=== PATIENT | male | born 1930 ===

== ENCOUNTER 2016-11-14 01:35 | Observation (INO) | payer OTHER ==
[2016-11-14] MEDS ORDERED: Nitroglycerin 2% 15 INCH/30 GM TUBE TOP STA (02:00)
[2016-11-14 02:14] LABS: BASO # 0.1 K/uL (0.0-0.2); BASO % 1.1 % (0.0-2.0); EOS # 0.6 K/uL (0.0-0.7); EOS % 6.7 % (0.0-4.0); LYMPH # 3.5 K/uL (1.0-4.3); LYMPH % 37.6 % (20.0-40.0); MEAN CELL VOLUME 83.4 fl (80.0-94.0); MEAN CORPUSCULAR HEMOGLOBIN 27.3 pg (27.0-31.0); MEAN CORPUSCULAR HGB CONC 32.7 g/dL (33.0-37.0); MEAN PLATELET VOLUME 8.9 fl (7.2-11.7); MONO # 0.9 K/uL (0.0-0.8); MONO % 9.7 % (0.0-10.0); NEUT # 4.1 K/uL (1.8-7.0); NEUT % 44.9 % (50.0-75.0); NRBC % 0.1 % (0.0-0.0); RBC 4.78 Mil/uL (4.40-5.90); WHITE BLOOD COUNT 9.2 K/uL (4.8-10.8)
--- NOTE | 2016-11-14 02:15 | ED PDOC ---
HPI: Chest Pain Time Seen by Provider: 11/14/16 01:37 Chief Complaint (Nursing): Chest Pain Chief Complaint (Provider): Chest Pain History Per: Patient History/Exam Limitations: no limitations Onset/Duration Of Symptoms: Hrs (x 5 hours) Current Symptoms Are (Timing): Still Present Additional Complaint(s): Sony Hinson is an 86 y/o male with a past medical history of coronary artery disease, dyslipidemia, and hypertension, who presents to the ED with complaints of acute left-sided chest pain, onset 5 hours ago while patient was at rest. He states having an angioplasty for a coronary occasion discovered on cardiac catheterization 3 weeks ago at [facility]. Pain is described as pressure. Patient denies diaphoresis, nausea, and vomiting. He reports being compliant with Plavix and aspirin regimen. PMD: Jayson Dai MD Past Medical History Reviewed: Historical Data, Nursing Documentation, Vital Signs Vital Signs: Last Vital Signs Temp 97.6 F 11/14/16 04:42 Pulse 62 11/14/16 04:42 Resp 18 11/14/16 04:42 BP 138/63 11/14/16 04:42 Pulse Ox 97 11/14/16 04:42 - Medical History PMH: Anemia, Anxiety, Arthritis, Benign Prostatic Hyperplasia, CAD, Gastritis, HTN, Hyperlipidemia, Chronic Kidney Disease - Surgical History Other surgeries: Angioplasty 3 weeks ago - Family History Family History: States: Unknown Family Hx - Social History Current smoker - smoking cessation education provided: No Alcohol: None Drugs: Denies - Home Medications Home Medications: Ambulatory Orders Medication Instructions Recorded ALPRAZolam [Xanax] 0.25 mg PO HS PRN #15 tab 07/31/16 Finasteride [Proscar] 5 mg PO HS #30 tab 07/31/16 Tamsulosin [Flomax] 0.4 mg PO HS cap 07/31/16 Acetaminophen [Tylenol 325mg tab] 650 mg PO Q6 PRN 11/14/16 Aspirin [Aspirin Chewable] 81 mg PO DAILY 11/14/16 Atorvastatin [Lipitor] 80 mg PO DAILY 11/14/16 Cetirizine HCl [All Day Allergy] 10 mg PO DAILY 11/14/16 Lisinopril [Zestril] 5 mg PO DAILY 11/14/16 Ranolazine [Ranexa] 500 mg PO BID 11/14/16 - Allergies Allergies/Adverse Reactions: Allergies Allergy/AdvReac Type Severity Reaction Status Date / Time Penicillins Allergy RASH Verified 07/26/16 13:50 Review of Systems ROS Statement: Except As Marked, All Systems Reviewed And Found Negative Constitutional: Negative for: Other (Diaphoresis) Cardiovascular: Positive for: Chest Pain Gastrointestinal: Negative for: Nausea, Vomiting Physical Exam - Reviewed Nursing Documentation Reviewed: Yes Vital Signs Reviewed: Yes - Physical Exam Appears: Positive for: Non-toxic, No Acute Distress Head Exam: Positive for: ATRAUMATIC, NORMAL INSPECTION, NORMOCEPHALIC Skin: Positive for: Normal Color, Warm, Dry Eye Exam: Positive for: Normal appearance ENT: Positive for: Normal ENT Inspection Neck: Positive for: Normal, Painless ROM, Supple Cardiovascular/Chest: Positive for: Regular Rate, Rhythm, Chest Non Tender. Negative for: Murmur Respiratory: Positive for: Normal Breath Sounds. Negative for: Accessory Muscle Use, Respiratory Distress Gastrointestinal/Abdominal: Positive for: Soft. Negative for: Tenderness Back: Positive for: Normal Inspection. Negative for: Vertebral Tenderness Extremity: Positive for: Normal ROM. Negative for: Pedal Edema, Deformity Neurologic/Psych: Positive for: Alert, Oriented - Laboratory Results Result Diagrams: 11/14/16 02:11 11/14/16 02:11 - ECG O2 Sat by Pulse Oximetry: 99 (RA) Pulse Ox Interpretation: Normal - Other Rad Chest X-Ray X-Ray: Interpreted by Me, Viewed By Id X-Ray Interpretation: shows no acute disease. Medical Decision Making Medical Decision Making: Time: 2:04 Initial Impression: 86 y/o male with chest pain in the setting of known CAD and PTCA Initial Plan: --Labs --EKG --Patient given Nitro and Aspirin --Pending CXR --Admit to observation for chest pain Time: 03:36 --Case referred to Dr. Dai (Medicine on-call doctor) Scribe Attestation: Documented by Anne Johnson, acting as a scribe for Cali Ga MD Provider Scribe Attestation: All medical record entries made by the Scribe were at my direction and personally dictated by me. I have reviewed the chart and agree that the record accurately reflects my personal performance of the history, physical exam, medical decision making, and the department course for this patient. I have also personally directed, reviewed, and agree with the discharge instructions and disposition. Disposition - Clinical Impression Clinical Impression: Chest pain Counseled Patient/Family Regarding: Studies Performed, Diagnosis - Disposition Disposition Time: 02:00 Condition: FAIR
[2016-11-14 02:23] LABS: ALB/GLOB RATIO 1.3 (1.0-2.1); ALBUMIN 4.2 g/dL (3.5-5.0); CALCIUM 9.1 mg/dL (8.4-10.2)
[2016-11-14 02:28] LABS: PARTIAL THROMBOPLASTIN TIME 35.5 Seconds (25.6-37.1); PROTHROMBIN TIME 11.3 Seconds (9.8-13.1)
[2016-11-14 02:35] LABS: TROPONIN I 0.015 ng/mL (0.00-0.120)
[2016-11-14 04:43] VITALS: RESP 18
--- NOTE | 2016-11-14 08:01 | RAD ---
HISTORY: Chest pain. Portable study 02:10. COMPARISON: 01/22/2012. FINDINGS: LUNGS: No active pulmonary disease. PLEURA: No significant pleural effusion identified, no pneumothorax apparent. CARDIOVASCULAR: No radiographic findings to suggest acute or significant cardiovascular disease. OSSEOUS STRUCTURES: No significant abnormalities. VISUALIZED UPPER ABDOMEN: Normal. OTHER FINDINGS: None. IMPRESSION: No active disease. No significant interval change compared to the prior examination(s). No preliminary report provided by emergency department personnel.
--- NOTE | 2016-11-14 11:54 | CP.PCM.HP ---
<John De Jesus - Last Filed: 11/14/16 13:36> History of Present Illness - History of Present Illness History of Present Illness: 86 y/o male with a PMHx remarkable for CAD, HLD, and HTN, presented to the ED with complaints of left-sided chest pain. Pain started earlier in the day while he was at rest. Denies inciting event. Pain is located on the left side of his chest, is 5/10, intermittent, and nonradiating. It is pressure like in characte. Denies alleviating and exacerbating factors. Pt reports having an angioplasty for a coronary occlusion found on cardiac cath 3 weeks ago at the [facility]. No other complaints. He denies fever/chills, headaches, changes in vision associated diaphoresis, nausea, and vomiting. Denies urianry symptoms , numbness/tingling. PMD: Dr. Jayson Dai PMHx: as per HPI Meds: as per med rec ALL: penicillin Social: denies ETOH, tobacco drug abuse FamilyHx: noncontributory Present on Admission - Present on Admission Any Indicators Present on Admission: No Review of Systems - Review of Systems All systems: reviewed and no additional remarkable complaints except - Constitutional Constitutional: As Per HPI Past Patient History - Past Medical History & Family History Past Medical History?: Yes - Past Social History Alcohol: None Drugs: Denies - CARDIAC Hx Hypertension: Yes - PULMONARY Hx Respiratory Disorders: No - NEUROLOGICAL Hx Neurological Disorder: No - HEENT Hx HEENT Problems: Yes Hx Deafness: Yes (left, hard of hearing) - RENAL Hx Chronic Kidney Disease: Yes - ENDOCRINE/METABOLIC Hx Endocrine Disorders: No - HEMATOLOGICAL/ONCOLOGICAL Hx Anemia: Yes - INTEGUMENTARY Hx Dermatological Problems: No - MUSCULOSKELETAL/RHEUMATOLOGICAL Hx Arthritis: Yes - GASTROINTESTINAL Hx Gastritis: Yes - GENITOURINARY/GYNECOLOGICAL Hx Genitourinary Disorders: Yes Hx Prostate Problems: Yes - PSYCHIATRIC Hx Anxiety: Yes - SURGICAL HISTORY Hx Surgeries: Yes Hx Angioplasty: Yes (October 2016) Hx Herniorrhaphy: Yes Other/Comment: gastric ulcer surgery - ANESTHESIA Hx Anesthesia: Yes Hx Anesthesia Reactions: No Meds Allergies/Adverse Reactions: Allergies Allergy/AdvReac Type Severity Reaction Status Date / Time Penicillins Allergy RASH Verified 07/26/16 13:50 Physical Exam - Constitutional Appears: Non-toxic, No Acute Distress - Head Exam Head Exam: ATRAUMATIC, NORMOCEPHALIC - Eye Exam Eye Exam: EOMI. absent: Conjunctival injection, Scleral icterus Pupil Exam: PERRL - ENT Exam ENT Exam: Mucous Membranes Moist - Respiratory Exam Respiratory Exam: Clear to Auscultation Bilateral, NORMAL BREATHING PATTERN. absent: Rales, Rhonchi, Wheezes - Cardiovascular Exam Cardiovascular Exam: REGULAR RHYTHM, RRR, +S1, +S2. absent: Tachycardia, Diastolic murmur, Gallop, JVD, Rubs, Systolic Murmur - GI/Abdominal Exam GI & Abdominal Exam: Normal Bowel Sounds, Soft. absent: Distended, Firm, Guarding, Organomegaly, Rebound, Rigid, Tenderness - Extremities Exam Extremities exam: Positive for: normal inspection, pedal pulses present. Negative for: calf tenderness, pedal edema, tenderness - Neurological Exam Neurological exam: Alert, CN II-XII Intact, Oriented x3, Reflexes Normal Results - Vital Signs Recent Vital Signs: Last Vital Signs Temp 97.5 F L 11/14/16 08:16 Pulse 62 11/14/16 11:42 Resp 18 11/14/16 08:16 BP 127/67 11/14/16 11:42 Pulse Ox 98 11/14/16 08:16 - Labs Result Diagrams: 11/14/16 02:11 11/14/16 02:11 Labs: Laboratory Results - last 24 hr 11/14/16 11/14/16 11/14/16 02:11 02:11 02:11 WBC 9.2 RBC 4.78 Hgb 13.0 Hct 39.8 MCV 83.4 MCH 27.3 MCHC 32.7 L RDW 15.0 H Plt Count 236 MPV 8.9 Neut % (Auto) 44.9 L Lymph % (Auto) 37.6 [place] % (Auto) 9.7 Eos % (Auto) 6.7 H Baso % (Auto) 1.1 Neut # 4.1 Lymph # 3.5 [place] # 0.9 H Eos # 0.6 Baso # 0.1 PT 11.3 INR 1.0 APTT 35.5 Sodium 137 Potassium 4.7 Chloride 104 Carbon Dioxide 25 Anion Gap 14 BUN 18 Creatinine 1.9 H Est GFR ( Amer) 41 Est GFR (Non-Af Amer) 34 Random Glucose 103 Calcium 9.1 Total Bilirubin 0.5 AST 28 ALT 40 Alkaline Phosphatase 92 Troponin I 0.0150 NT-Pro-B Natriuret Pep 609 Total Protein 7.4 Albumin 4.2 Globulin 3.2 Albumin/Globulin Ratio 1.3 Assessment & Plan (1) Chest pain, rule out acute myocardial infarction Assessment and Plan: EKG done in ED: NSR, low voltage for LVH, borderline EKG Troponins: first two values negative, awaiting third result Cardiology consult with Dr. Brown appreciated f/u third Troponin meds as ordered Status: Acute Priority: High (2) Hypertension Assessment and Plan: c/w home meds Status: Chronic Priority: Low (3) Hyperlipidemia Assessment and Plan: c/w home meds Status: Chronic Priority: Low (4) Benign prostatic hyperplasia Assessment and Plan: c/w home meds Status: Chronic Priority: Low <Dai,Jayson K - Last Filed: 11/15/16 16:37> Results - Vital Signs Recent Vital Signs: Last Vital Signs Temp 97.7 F 11/15/16 08:10 Pulse 73 11/15/16 09:00 Resp 18 11/15/16 08:10 BP 132/74 11/15/16 08:50 Pulse Ox 97 11/15/16 08:10 - Labs Result Diagrams: 11/14/16 02:11 11/14/16 02:11 Labs: Laboratory Results - last 24 hr 11/14/16 20:00 Troponin I 0.0130 Assessment & Plan - Assessment and Plan (Free Text) Assessment: Patient was personally seen and examined by me in rounds with residents. Available labs and diagnostic data reviewed. Case, patient's condition and management plan discussed with residents in rounds. Agree with resident's progress note. Plan: As ordered.
--- NOTE | 2016-11-14 12:26 | CARD ---
APPROVED REPORT EKG Measurement Heart [id number] ID [id number] <Conclusion> Normal sinus rhythm Minimal voltage criteria for LVH, may be normal variant Borderline ECG
[2016-11-14 15:39] LABS: URINE BACTERIA RARE (<OCC); URINE BILIRUBIN NEGATIVE (NEGATIVE); URINE BLOOD NEGATIVE (NEGATIVE); URINE CLARITY CLEAR (Clear); URINE COLOR YELLOW (YELLOW); URINE GLUCOSE (UA) NEG (Normal); URINE LEUKOCYTE ESTERASE NEG Leu/uL (Negative); URINE NITRATE NEGATIVE (NEGATIVE); URINE PROTEIN 100 mg/dL (NEGATIVE); URINE UROBILINOGEN 0.2-1.0 mg/dL (0.2-1.0)
--- NOTE | 2016-11-14 17:06 | CARD ---
APPROVED REPORT EXAM: Two-dimensional and M-mode echocardiogram with Doppler and color Doppler. Other Information Quality : GoodRhythm : NSR INDICATION Chest Pain 2D DIMENSIONS IVSd1.04 (0.7-1.1cm)LVDd3.63 (3.9-5.9cm) LVOT Diameter2.50 (1.8-2.4cm)PWd0.76 (0.7-1.1cm) IVSs1.13 (0.8-1.2cm)LVDs3.79 (2.5-4.0cm) FS (%) 4.3 %PWs1.05 (0.8-1.2cm) LVEF (%)55.0 (>50%) M-Mode DIMENSIONS Left Atrium (MM)3.76 (2.5-4.0cm)IVSd0.79 (0.7-1.1cm) Aortic Root3.26 (2.2-3.7cm)LVDd5.56 (4.0-5.6cm) Aortic Cusp Exc.1.79 (1.5-2.0cm)PWd1.03 (0.7-1.1cm) IVSs1.12 cmFS (%) 39 % LVDs3.41 (2.0-3.8cm)PWs1.62 cm Mitral Valve MV E Tktjmbio87.6cm/sMV DECEL [id number] A Oandwoxc27.9cm/s MV ZQN00uhN/A ratio0.8MVA (PHT)2.38cm2 TDI Lateral E' Peak V7.74cm/sMedial E' Peak V7.66cm/sE/Lateral E'7.3 E/Medial E'7.4 Pulmonary Valve PV Peak Amatrygc64.4cm/s Tricuspid Valve TR Peak Llxkpjhf365re/sRAP [id number] Peak Gr.17mmHg [id number] LEFT VENTRICLE The left ventricle is normal size. There is borderline concentric left ventricular hypertrophy. The left ventricular ejection fraction is within the normal range. Mild Septal hypokinesis Transmitral Doppler flow pattern is Grade I-abnormal relaxation pattern. RIGHT VENTRICLE The right ventricle is normal size. There is normal right ventricular wall thickness. The right ventricular systolic function is normal. ATRIA The left atrium size is normal. The right atrium size is normal. AORTIC VALVE The aortic valve is mildly thickened. There is trace aortic regurgitation. There is no aortic valvular stenosis. MITRAL VALVE The mitral valve is mildly thickened. There is no mitral valve stenosis. Mitral regurgitation is mild. TRICUSPID VALVE The tricuspid valve is normal in structure and function. There is no tricuspid valve regurgitation noted. PULMONIC VALVE The pulmonary valve is normal in structure and function. There is no pulmonic valvular regurgitation. GREAT VESSELS The aortic root is normal in size. The IVC is normal in size and collapses >50% with inspiration. PERICARDIAL EFFUSION There is a trace loculated anterior pericardial effusion. <Conclusion> The left ventricle is normal size. There is borderline concentric left ventricular hypertrophy. The left ventricular ejection fraction is within the normal range. Mild Septal hypokinesis Transmitral Doppler flow pattern is Grade I-abnormal relaxation pattern. Mitral regurgitation is mild.
[2016-11-15 00:31] VITALS: TEMP 97.7; O2SAT 97
[2016-11-15 08:10] VITALS: PULSE 73
[2016-11-15 08:11] VITALS: BP 132/74
--- NOTE | 2016-11-15 10:27 | CP.PCM.CON ---
History of Present Illness - History of Present Illness History of Present Illness: this 86-year-old man has come into the emergency room complaining of a sharp retrosternal discomfort aggravated by deep inspiration. This occurred at rest. It was not accompanied by any discomfort in his neck or jaw or arms. He gives history of recently having required coronary stenting at [facility] 3 weeks back. There is no history of prior myocardial infarction. There is no history suggestive of congestive cardiac failure. The patient has a long history of hypertension. He he quit smoking more than 40 years back. He has never been a diabetic. He is taken his medications regularly. Since his admission the patient has been symptom-free. On physical examination, this is an elderly man who is alert awake and coherent. Afebrile. Breathes comfortably at 16 breaths per minute. Has a heart rate of 70 bpm and regular and a blood pressure of 122/70 mmHg. His jugular venous pressure was not elevated. There was no edema over his lower extremities. The pedal pulses were well felt. The extremities were warm, nailbeds were pink there was no central or peripheral cyanosis. There was no clubbing. There was no lymphadenopathy. The apex was palpable in the fifth space the first and second heart sounds were normal. There was no murmur or gallop there were no rales. His abdomen was soft liver and spleen are not palpable. There were no abdominal bruits. His electro-cardiogram showed sinus rhythm with a pattern suggestive of left ventricular hypertrophy. His electrocardiogram was compared with the cardiograms of his June admission at this institution for chest pain as well. The EKG tracings were similar at that time to the tracings taken now. His lab tests show a normal troponin level, indicating that there is no evidence off myocyte injury. IMPRESSION: atypical chest pain. No evidence of acute coronary syndrome.stable coronary artery disease with status post recent coronary stenting. History of hypertension and dyslipidemia. The patient is stable from cardiovascular point of view and may be allowed to return home taking his medications,which should include dual antiplatelets therapy. Past Patient History - Past Medical History & Family History Past Medical History?: Yes - Past Social History Alcohol: None Drugs: Denies - CARDIAC Hx Hypertension: Yes - PULMONARY Hx Respiratory Disorders: No - NEUROLOGICAL Hx Neurological Disorder: No - HEENT Hx HEENT Problems: Yes Hx Deafness: Yes (left, hard of hearing) - RENAL Hx Chronic Kidney Disease: Yes - ENDOCRINE/METABOLIC Hx Endocrine Disorders: No - HEMATOLOGICAL/ONCOLOGICAL Hx Anemia: Yes - INTEGUMENTARY Hx Dermatological Problems: No - MUSCULOSKELETAL/RHEUMATOLOGICAL Hx Arthritis: Yes - GASTROINTESTINAL Hx Gastritis: Yes - GENITOURINARY/GYNECOLOGICAL Hx Genitourinary Disorders: Yes Hx Prostate Problems: Yes - PSYCHIATRIC Hx Anxiety: Yes - SURGICAL HISTORY Hx Surgeries: Yes Hx Angioplasty: Yes (October 2016) Hx Herniorrhaphy: Yes Other/Comment: gastric ulcer surgery - ANESTHESIA Hx Anesthesia: Yes Hx Anesthesia Reactions: No Meds Allergies/Adverse Reactions: Allergies Allergy/AdvReac Type Severity Reaction Status Date / Time Penicillins Allergy RASH Verified 07/26/16 13:50 - Medications Medications: Current Medications Alprazolam (Xanax) 0.25 mg PO HS PRN PRN Reason: Anxiety Stop: 11/21/16 09:42 Last Admin: 11/14/16 21:27 Dose: 0.25 mg Aspirin (Aspirin Chewable) 81 mg PO DAILY PENDING SALE TO [facility] Last Admin: 11/15/16 08:50 Dose: 81 mg Atorvastatin Calcium (Lipitor) 80 mg PO DAILY PENDING SALE TO [facility] Last Admin: 11/15/16 08:50 Dose: 80 mg Docusate Sodium (Colace) 100 mg PO DAILY PENDING SALE TO [facility] Last Admin: 11/15/16 08:50 Dose: 100 mg Finasteride (Proscar) 5 mg PO HS PENDING SALE TO [facility] Last Admin: 11/14/16 21:24 Dose: 5 mg Home Med (Ranolazine [Ranexa]) 500 mg PO BID PENDING SALE TO [facility] Lactulose (Enulose) 10 gm PO DAILY PRN PRN Reason: Constipation Last Admin: 11/14/16 16:46 Dose: 10 gm Lisinopril (Zestril) 5 mg PO DAILY PENDING SALE TO [facility] Last Admin: 11/15/16 08:50 Dose: 5 mg Loratadine (Claritin) 10 mg PO DAILY PENDING SALE TO [facility] Last Admin: 11/15/16 08:50 Dose: 10 mg Tamsulosin HCl (Flomax) 0.4 mg PO HS PENDING SALE TO [facility] Last Admin: 11/14/16 21:24 Dose: 0.4 mg Results - Vital Signs Recent Vital Signs: Last Vital Signs Temp 97.7 F 11/15/16 08:10 Pulse 73 11/15/16 08:50 Resp 18 11/15/16 08:10 BP 132/74 11/15/16 08:50 Pulse Ox 97 11/15/16 08:10 - Labs Result Diagrams: 11/14/16 02:11 11/14/16 02:11 Labs: Laboratory Results - last 24 hr 11/14/16 11/14/16 11/14/16 12:30 14:00 20:00 Troponin I 0.0140 0.0130 Urine Color Yellow Urine Clarity Clear Urine pH 7.0 Ur Specific [place] 1.005 Urine Protein 100 Urine Glucose (UA) Neg Urine Ketones Negative Urine Blood Negative Urine Nitrate Negative Urine Bilirubin Negative Urine Urobilinogen 0.2-1.0 Ur Leukocyte Esterase Neg Urine Microscopic WBC < 1 Urine Bacteria Rare
[2016-11-15] MEDS ORDERED: Lactulose 10 gm/15 ml Syrup PO PRN (11:45)
== END 2016-11-15 11:42 | disposition home or self-care (01) ==
LOC: H.ER 01:35 → H.ERHOLD 02:04 → H.TEL 04:03
PROVIDERS: ADMIT Internal Medicine; ATTEND Internal Medicine
DX: R07.89 Other chest pain (principal); E78.5 Hyperlipidemia, unspecified; I12.9 Hypertensive chronic kidney disease with stage 1 through stage 4 chronic kidney disease, or unspecified chronic kidney disease; N18.9 Chronic kidney disease, unspecified; I25.10 Atherosclerotic heart disease of native coronary artery without angina pectoris; Z95.5 Presence of coronary angioplasty implant and graft; N40.0 Benign prostatic hyperplasia without lower urinary tract symptoms; Z87.891 Personal history of nicotine dependence; Z88.0 Allergy status to penicillin; H91.92 Unspecified hearing loss, left ear; K29.70 Gastritis, unspecified, without bleeding; F41.9 Anxiety disorder, unspecified; M19.90 Unspecified osteoarthritis, unspecified site
CPT/HCPCS: 71010; 80053; 81003; 83880; 84484; 85025; 85610; 85730; 93005; 93306; 99285; G0378

== ENCOUNTER 2017-06-03 04:12 | Inpatient (IN) | payer SELFPAY ==
--- NOTE | 2017-06-03 04:57 | ED PDOC ---
HPI: Chest Pain Chief Complaint (Provider): Chest pain Additional History Per: Patient <Kiki Galvez - Last Filed: 06/03/17 06:06> <Naima Navarrete - Last Filed: 06/03/17 06:19> Time Seen by Provider: 06/03/17 04:24 Chief Complaint (Nursing): Chest Pain Additional Complaint(s): This is 87 y/o male with PMH of CAD, KS, HTN, and HLD comes to the ED c/o left side chest pain which started 3 hours ago. Pain is 8/10 severity, intermittent, Pressure like in nature, tylenol did not help with pain and it gets worse with movements. Chest pain is associated with mild dizziness and occasional nausea, Admits fever yesterday and coughing. Denies blurred vision, abdominal pain, urinary symptoms or joint pain. (Kiki Galvez) Supervising Attending Note - Supervising Attending Note The Documented history was done by the: Physician Distribution Associate, Attending Physician The documented physical exam was done by the: Physician Distribution Associate, Attending Physician The documented procedures were done by the: Physician Distribution Associate, Attending Physician - Attestation: I have personally seen and examined this patient.: Yes I have fully participated in the care of the patient.: Yes I have reviewed all pertinent clinical information: Yes <Naima Navarrete - Last Filed: 06/03/17 06:19> Past Medical History - Medical History PMH: Anemia, Anxiety, Arthritis, Benign Prostatic Hyperplasia, CAD, Gastritis, HTN, Hyperlipidemia, Chronic Kidney Disease - Surgical History Surgical History: Coronary Stent, Hernia Repair - Family History Family History: States: Unknown Family Hx - Social History Current smoker - smoking cessation education provided: No Alcohol: None Drugs: Denies <Kiki Galvez - Last Filed: 06/03/17 06:06> Reviewed: Historical Data, Nursing Documentation, Vital Signs <Naima Navarrete - Last Filed: 06/03/17 06:19> Vital Signs: Last Vital Signs Temp 98.5 F 06/03/17 04:20 Pulse 78 06/03/17 05:30 Resp 18 06/03/17 05:30 BP 103/67 06/03/17 05:30 Pulse Ox 98 06/03/17 06:06 - Home Medications Home Medications: Ambulatory Orders Medication Instructions Recorded ALPRAZolam [Xanax] 0.25 mg PO HS PRN #15 tab 07/31/16 Finasteride [Proscar] 5 mg PO HS #30 tab 07/31/16 Tamsulosin [Flomax] 0.4 mg PO HS cap 07/31/16 Acetaminophen [Tylenol 325mg tab] 650 mg PO Q6 PRN 11/14/16 Aspirin [Aspirin Chewable] 81 mg PO DAILY 11/14/16 Atorvastatin [Lipitor] 80 mg PO DAILY 11/14/16 Ranolazine [Ranexa] 500 mg PO BID 11/14/16 Docusate Sodium/Sennosides A 1 tab PO TID 06/03/17 [Senokot S 50 MG-8.6 MG] Isosorbide Mononitrate [Isosorbide 1 tab PO DAILY 06/03/17 Mononitrate ER] Metoprolol Tartrate [Lopressor] 25 mg PO BID 06/03/17 Nitroglycerin [Nitrostat SL Tab] 1 tab PO PRN PRN 06/03/17 Pantoprazole [Protonix EC Tab] 40 mg PO BID 06/03/17 - Allergies Allergies/Adverse Reactions: Allergies Allergy/AdvReac Type Severity Reaction Status Date / Time Penicillins Allergy RASH Verified 07/26/16 13:50 YAYA Risk Score for UA/NSTEMI - YAYA Risk Score Age > 64: YES 3 or more CAD Risk Factors: YES Known CAD (Stenosis greater than 50%): YES Aspirin use in past 7 days: YES Severe Angina: NO EKG ST changes greater than 0.5mm: NO YAYA Score: 4 Risk %: 20% <Kiki Galvez - Last Filed: 06/03/17 06:06> - YAYA Risk Score Positive Cardiac Marker: NO AYYA Score: 0 Risk %: 5% <Naima Navarrete - Last Filed: 06/03/17 06:19> Curb-65 Severity Score - CURB-65 Severity Score Confusion: No Respiratory Rate greater than/equal to 30: No Systolic BP <90 or Diastolic BP less than/equal 60mmHg: No Age >64: Yes Curb-65 Score: 1 Percentage 30-day mortality: 2.7% <Kiki Galvez - Last Filed: 06/03/17 06:06> - CURB-65 Severity Score Confusion: No Bun >19mg/dl (>7mmol/L): No Respiratory Rate greater than/equal to 30: No Systolic BP <90 or Diastolic BP less than/equal 60mmHg: No Age >64: No Curb-65 Score: 0 Percentage 30-day mortality: 0.6% <Naima Navarrete - Last Filed: 06/03/17 06:19> Wells Criteria for PE - Wells Criteria for Pulmonary Embolism Clinical Signs and Symptoms of DVT: No P.E is #1 Diagnosis, or Equally Likely: No Heart Rate >100: No Immobilization at least 3 days;Surgery previous 4 weeks: No Previous, objectively diagnosed PE or DVT: No Hemoptysis: No Malignancy w/treatment within 6 months, or palliative: No Total Score: 0 <Kiki Galvez - Last Filed: 06/03/17 06:06> Review of Systems Constitutional: Positive for: Fever Eyes: Negative for: Pain, Vision Change ENT: Negative for: Ear Pain Cardiovascular: Positive for: Chest Pain, Palpitations. Negative for: Edema Respiratory: Positive for: Cough, SOB with Exertion Gastrointestinal: Positive for: Nausea. Negative for: Vomiting, Abdominal Pain , Diarrhea Genitourinary Male: Negative for: Dysuria Musculoskeletal: Negative for: Neck Pain Skin: Negative for: Rash Neurological: Negative for: Weakness, Numbness, Confusion <Kiki Galvez - Last Filed: 06/03/17 06:06> ROS Statement: Except As Marked, All Systems Reviewed And Found Negative <Naima Navarrete - Last Filed: 06/03/17 06:19> Physical Exam - Reviewed Nursing Documentation Reviewed: Yes Vital Signs Reviewed: Yes - Physical Exam Appears: Positive for: No Acute Distress Head Exam: Positive for: ATRAUMATIC Skin: Positive for: Normal Color Eye Exam: Positive for: Normal appearance ENT: Positive for: Normal ENT Inspection Neck: Positive for: Normal Cardiovascular/Chest: Positive for: Regular Rate, Rhythm, Chest Non Tender. Negative for: Edema, JVD Respiratory: Positive for: Normal Breath Sounds Gastrointestinal/Abdominal: Positive for: Normal Exam, Bowel Sounds, Soft. Negative for: Tenderness Back: Positive for: Normal Inspection Extremity: Negative for: Pedal Edema, Calf Tenderness Neurologic/Psych: Positive for: Alert, Oriented. Negative for: Motor/Sensory Deficits <Kiki Galvez - Last Filed: 06/03/17 06:06> - Laboratory Results Result Diagrams: 06/03/17 05:13 06/03/17 05:13 - ECG O2 Sat by Pulse Oximetry: 98 - Progress Re-evaluation Time: 06:00 Condition: Improved <Kiki Galvez - Last Filed: 06/03/17 06:06> - Laboratory Results Result Diagrams: 06/03/17 05:13 06/03/17 05:13 - ECG ECG: Positive for: Interpreted By Me, Viewed By Me ECG Rhythm: Positive for: Normal QRS, Sinus Rhythm, Nonspecific Changes Rate: 85 - Radiology X-Ray: Interpreted by Me, Viewed By Me X-Ray Interpretation: No Acute Disease <Naima Navarrete - Last Filed: 06/03/17 06:19> - Progress ED Course And Treament: 87 y/o male with left side chest pain and coughing - EKG, CXR - Troponin, BNP - CBC - Influenza A/B - Nitroglyc 0.4mg - Continue digital media producer - Reevaluate Case discussed with Dr. Navarrete EKG reviewed: Normal sinus rhythm, Nonspecific T waves abnormality CXR: No acute changes CBC, CMP reviewed with patient Troponin negative Flu negative (Kiki Galvez) Medical Decision Making <Kiki Galvez - Last Filed: 06/03/17 06:06> <Naima Navarrete - Last Filed: 06/03/17 06:19> Medical Decision Making: Chest pain, URI (Kiki Galvez) Disposition - Patient ED Disposition Is Patient to be Admitted: Yes Discussed With DrDashawn: Jovanni Mcginnis Doctor Will See Patient In The: ED - Disposition Disposition Time: 06:04 <Kiki Galvez - Last Filed: 06/03/17 06:06> Counseled Patient/Family Regarding: Studies Performed, Diagnosis - Pt Status Changed To: Hospital Disposition Of: Observation - POA Present On Arrival: None <Naima Navarrete - Last Filed: 06/03/17 06:19> - Clinical Impression Clinical Impression: Chest pain, Atypical chest pain - Disposition Condition: FAIR
[2017-06-03 05:16] LABS: BASO # 0.1 K/uL (0.0-0.2); EOS # 0.2 K/uL (0.0-0.7); EOS % 3.4 % (0.0-4.0); HEMOGLOBIN 11.6 g/dL (12.0-18.0); LYMPH # 0.7 K/uL (1.0-4.3); MEAN CELL VOLUME 80.6 fl (80.0-94.0); MEAN CORPUSCULAR HEMOGLOBIN 25.8 pg (27.0-31.0); MEAN CORPUSCULAR HGB CONC 32.1 g/dL (33.0-37.0); MEAN PLATELET VOLUME 9.2 fl (7.2-11.7); MONO # 0.7 K/uL (0.0-0.8); MONO % 11.5 % (0.0-10.0); NEUT # 4.4 K/uL (1.8-7.0); NEUT % 72.1 % (50.0-75.0); RBC 4.48 Mil/uL (4.40-5.90); RED CELL DISTRIBUTION WIDTH 15.7 % (11.5-14.5); WHITE BLOOD COUNT 6.1 K/uL (4.8-10.8)
[2017-06-03 05:23] LABS: CALCIUM 8.6 mg/dL (8.4-10.2)
[2017-06-03 05:35] LABS: TROPONIN I 0.018 ng/mL (0.00-0.120)
--- NOTE | 2017-06-03 08:26 | CP.PCM.HP ---
History of Present Illness - History of Present Illness History of Present Illness: 87 y/o male with PMH CAD with 1 stent placed in October 2016, dyslipidemia, CKD stage IV hypertension , history of gastric ulcer, BPH, anxiety, CVA ? brought to ER for evaluation for chest pain. History obtained from patient . He states that experienced sudden midsternal chest pain pressure like 10/10 in intensity early this morning , waking him up from sleep. He called his daughter who told him to call EMS. patient states that he also felt lightheaded when he got up from bed. He denies any other associated symptoms or radiation . Has been having dry cough since yesterday. his pain got better after Nitro SL with 5/10 in intensity. he states that he used to get chest pain and SOB with ambulation before and after he got stent his symptoms improved Complains of some SOB with ambulation , denies orthopnea. Patient is not a very good historian Has urinary incontinence , denies dysuria Allergies ; PCN PMH ;CAD with 1 stent placed in October 2016, dyslipidemia, CKD, hypertension , history of gastric ulcer, BPH, anxiety, CVA Medications; Metoprolol, gabapentin, ASa, atorvastatin,plavix surgery ; bilateral inguinal hernia repair, C4-C5-C6 fusion, gastric ulcer surgery Family history ; 2 sisters of heart disease, 1 sister of liver disease Social history ; lives in [place] with , has 6 children, quit [id number] years ago, stopped drinking 20 years agpo, denies drug use, walks with a cane Code status : full ROS ; chest pain , urinary incontinence, dyspnea with ambulation , review of rest of system negative Present on Admission - Present on Admission Any Indicators Present on Admission: No Review of Systems - Review of Systems All systems: reviewed and no additional remarkable complaints except Past Patient History - Infectious Disease Hx of Infectious Diseases: None - Tetanus Immunizations Tetanus Immunization: Unknown - Past Medical History & Family History Past Medical History?: Yes - Past Social History Smoking Status: Former Smoker Chewing Tobacco Use: No Cigar Use: No Alcohol: None Drugs: Denies Home Situation {Lives}: With Family Domestic Violence: Negative - CARDIAC Hx Cardiac Disorders: Yes Hx Hypercholesterolemia: Yes Hx Hypertension: Yes Other/Comment: CAD with stent - PULMONARY Hx Respiratory Disorders: No - NEUROLOGICAL Hx Neurological Disorder: No - HEENT Hx HEENT Problems: Yes Hx Deafness: Yes (left, hard of hearing) - RENAL Hx Chronic Kidney Disease: Yes - ENDOCRINE/METABOLIC Hx Endocrine Disorders: No - HEMATOLOGICAL/ONCOLOGICAL Hx Anemia: Yes - INTEGUMENTARY Hx Dermatological Problems: No - MUSCULOSKELETAL/RHEUMATOLOGICAL Hx Arthritis: Yes - GASTROINTESTINAL Hx Gastritis: Yes - GENITOURINARY/GYNECOLOGICAL Hx Genitourinary Disorders: Yes - PSYCHIATRIC Hx Anxiety: Yes - SURGICAL HISTORY Hx Coronary Stent: Yes - ANESTHESIA Hx Anesthesia: Yes Hx Anesthesia Reactions: No Meds Allergies/Adverse Reactions: Allergies Allergy/AdvReac Type Severity Reaction Status Date / Time Penicillins Allergy RASH Verified 07/26/16 13:50 Physical Exam - Constitutional Appears: Non-toxic, No Acute Distress - Eye Exam Eye Exam: EOMI, Normal appearance, PERRL Pupil Exam: NORMAL ACCOMODATION - ENT Exam ENT Exam: Mucous Membranes Moist, Normal Exam - Neck Exam Neck exam: Positive for: Full Rom, Normal Inspection - Respiratory Exam Respiratory Exam: Clear to Auscultation Bilateral, Prolonged Expiratory Phase, NORMAL BREATHING PATTERN. absent: Rales, Rhonchi, Wheezes, Respiratory Distress - Cardiovascular Exam Cardiovascular Exam: REGULAR RHYTHM, RRR, +S1, +S2. absent: JVD - GI/Abdominal Exam GI & Abdominal Exam: Normal Bowel Sounds, Soft. absent: Guarding, Rebound, Tenderness - Rectal Exam Rectal Exam: Deferred - Extremities Exam Extremities exam: Positive for: normal capillary refill, normal inspection, pedal pulses present. Negative for: pedal edema - Back Exam Back exam: NORMAL INSPECTION - Neurological Exam Neurological exam: Alert Additional comments: right facial droop - Psychiatric Exam Psychiatric exam: Anxious, Flat Affect - Skin Skin Exam: Dry, Intact, Warm Results - Vital Signs Recent Vital Signs: Last Vital Signs Temp 100.4 F H 06/03/17 07:40 Pulse 78 06/03/17 07:40 Resp 16 06/03/17 07:40 BP 104/59 L 06/03/17 07:40 Pulse Ox 96 06/03/17 07:40 - Labs Result Diagrams: 06/03/17 05:13 06/03/17 05:13 Labs: Laboratory Results - last 24 hr 06/03/17 06/03/17 06/03/17 05:13 05:13 05:13 WBC 6.1 RBC 4.48 Hgb 11.6 L Hct 36.1 MCV 80.6 D MCH 25.8 L MCHC 32.1 L RDW 15.7 H Plt Count 188 MPV 9.2 Neut % (Auto) 72.1 Lymph % (Auto) 12.0 L [place] % (Auto) 11.5 H Eos % (Auto) 3.4 Baso % (Auto) 1.0 Neut # (Auto) 4.4 Lymph # (Auto) 0.7 L [place] # (Auto) 0.7 Eos # (Auto) 0.2 Baso # (Auto) 0.1 Sodium 138 Potassium 4.5 Chloride 105 Carbon Dioxide 24 Anion Gap 14 BUN 27 H Creatinine 2.2 H Est GFR ( Amer) 35 Est GFR (Non-Af Amer) 29 Random Glucose 100 Calcium 8.6 Troponin I 0.0180 Influenza Typ A,B (EIA) Negative for flu a/b - EKG Data EKG shows normal: Sinus rhythm Rate: Normal - EKG Data EKG comments: no ST -T wave changes - Imaging and Cardiology Chest x-ray Additional comment: no active disease Assessment & Plan - Assessment and Plan (Free Text) Assessment: 87 y/o male with PMH CAD with 1 stent placed in October 2016, dyslipidemia, CKD stage IV, hypertension , history of gastric ulcer, BPH, anxiety, CVA ? brought to ER for evaluation for chest pain. He states that experienced sudden midsternal chest pain pressure like 10/10 in intensity early this morning , waking him up from sleep.Patient states that he also felt lightheaded when he got up from bed. He denies any other associated symptoms or radiation . Has been having dry cough since yesterday. his pain got better after Nitro SL with 5 /10 in intensity. He states that he used to get chest pain and SOB with ambulation before and after he got stent his symptoms improved. Complains of some SOB with ambulation , denies orthopnea. 1. Chest pain rule out ACS Admit patient to telemetry History of CAd with stent ASA 325 mg stat and Nitro Sl given will cycle Troponins Q6 hours x3 tele monitoring call cardiology cosnult with Dr. Estrada echo resume home meds ASa , statin. Nitro Sl , ranexa ( ariadna e med ), Metoprolol 2. CKD stage IV stable 3. Hypertension Continue metoprolol 4. BPH on flomax and Proscar 5.Dyslipidemia on statin 6. History of CVA on ASa , statin , BP control 7. DVt prophylaxis SCD lovenox renal dose 8. GI prophylaxis Protonix
--- NOTE | 2017-06-03 09:33 | RAD ---
PROCEDURE: CHEST RADIOGRAPH, 1 VIEW HISTORY: chest pain COMPARISON: Comparison made with chest radiograph 11/14/2016 FINDINGS: LUNGS: There appears to be some minor some residual left atelectasis or scarring improved from prior exam. Mild biapical pleural thickening. PLEURA: No pneumothorax or pleural fluid seen. CARDIOVASCULAR: Normal. Re- demonstrated are metallic clips overlying the lower mid mediastinum ; rule out prior Jamee fundoplication. Clinical correlation with surgical history OSSEOUS STRUCTURES: No significant abnormalities. VISUALIZED UPPER ABDOMEN: Normal. OTHER FINDINGS: None. IMPRESSION: Minor residual left basilar atelectasis or scarring.
[2017-06-03 09:55] LABS: HDL CHOLESTEROL 43 MG/DL (30-70)
[2017-06-03 10:05] LABS: LDL CHOLESTEROL 48 mg/dL (0-129)
--- NOTE | 2017-06-03 12:14 | CARD ---
APPROVED REPORT EXAM: Two-dimensional and M-mode echocardiogram with Doppler and color Doppler. Other Information Quality : GoodRhythm : NSR INDICATION Cardiac Disease: CAD Chest Pain 2D DIMENSIONS IVSd1.09 (0.7-1.1cm)LVDd4.44 (3.9-5.9cm) LVOT Diameter2.15 (1.8-2.4cm)PWd0.58 (0.7-1.1cm) IVSs1.38 (0.8-1.2cm)LVDs2.66 (2.5-4.0cm) FS (%) 40.1 %PWs1.12 (0.8-1.2cm) M-Mode DIMENSIONS Left Atrium (MM)3.74 (2.5-4.0cm)IVSd0.85 (0.7-1.1cm) Aortic Root3.44 (2.2-3.7cm)LVDd4.68 (4.0-5.6cm) Aortic Cusp Exc.1.82 (1.5-2.0cm)PWd0.97 (0.7-1.1cm) IVSs1.47 cmFS (%) 38 % LVDs2.91 (2.0-3.8cm)PWs1.41 cm Mitral Valve MV E Alrhjgee75.5cm/sMV DECEL PROF663xmLP A Rfqupkjx14.5cm/s MV CVQ58aqF/A ratio0.9MVA (PHT)3.18cm2 TDI Lateral E' Peak V9.61cm/sMedial E' Peak V7.01cm/sE/Lateral E'6.3 E/Medial E'8.6 Pulmonary Valve PV Peak Wqvnkjgw917.0cm/s Tricuspid Valve TR Peak Bgiycvnj781il/sRAP [id number] Peak Gr.15mmHg [id number] LEFT VENTRICLE The left ventricle is normal size. The left ventricular function is normal. The left ventricular ejection fraction is within the normal range. The Ejection Fraction is 65-70%. There is normal LV segmental wall motion. The left ventricular diastolic function is normal. RIGHT VENTRICLE The right ventricle is normal size. The right ventricular systolic function is normal. ATRIA The left atrium size is normal. The right atrium size is normal. AORTIC VALVE The aortic valve is normal in structure. No aortic regurgitation is present. There is no aortic valvular stenosis. MITRAL VALVE The mitral valve is normal in structure. There is no mitral valve stenosis. Mitral regurgitation is mild. TRICUSPID VALVE The tricuspid valve is normal in structure. There is no tricuspid valve regurgitation noted. PULMONIC VALVE The pulmonary valve is normal in structure. There is no pulmonic valvular regurgitation. GREAT VESSELS The aortic root is normal in size. The IVC is normal in size and collapses >50% with inspiration. PERICARDIAL EFFUSION The pericardium appears normal. <Conclusion> The left ventricle is normal size. The left ventricular function is normal. The left ventricular ejection fraction is within the normal range. The Ejection Fraction is 65-70%. Mitral regurgitation is mild.
--- NOTE | 2017-06-03 12:20 | CARD ---
APPROVED REPORT EKG Measurement Heart [id number] <Conclusion> Normal sinus rhythm Minimal voltage criteria for LVH, may be normal variant Nonspecific T wave abnormality Abnormal ECG
[2017-06-03] MEDS: Docusate-Senna 50 mg-8.6 mg Tab PO SCH ×2 (12:55→20:17)
[2017-06-03] MEDS: Pantoprazole 40 mg EC Tab PO SCH (17:06)
--- NOTE | 2017-06-03 20:16 | CP.PCM.CON ---
History of Present Illness - History of Present Illness History of Present Illness: PT SEEN AND EXAMINED. FAMILY AT BEDSIDE. [facility] AT THAT TIME HE HAD CHEST PAIN WITH AMBULATION. THESE SYMPTOMS RESOLVED POST PCI, HOWEVER ABOUT 2 WEEKS AGO THE SYMPTOMS RETURNED. HE STATES THE CP IS THE SAME PRIOR TO PCI. SEVERE, BOUGHT ON BY AMBULATION, RELIEVED WITH REST. PT IS ON DUAL ANTIPLT THERAPY. PER DAUGHTER THEY WERE TOLD HE HAS MORE THAN 1 BLOCKAGE, ONLY 1 VESSEL WAS STENTED. TROP X 1 NEGATIVE. PT W/O CP CURRENTLY. Past Patient History - Infectious Disease Hx of Infectious Diseases: None - Tetanus Immunizations Tetanus Immunization: Unknown - Past Medical History & Family History Past Medical History?: Yes - Past Social History Smoking Status: Never Smoked - CARDIAC Hx Cardiac Disorders: Yes - PULMONARY Hx Respiratory Disorders: No - NEUROLOGICAL Hx Neurological Disorder: No - HEENT Hx HEENT Problems: Yes - RENAL Hx Chronic Kidney Disease: Yes - ENDOCRINE/METABOLIC Hx Endocrine Disorders: No - HEMATOLOGICAL/ONCOLOGICAL Hx Anemia: Yes - INTEGUMENTARY Hx Dermatological Problems: No - MUSCULOSKELETAL/RHEUMATOLOGICAL Hx Falls: No - GASTROINTESTINAL Hx Gastritis: Yes - GENITOURINARY/GYNECOLOGICAL Hx Genitourinary Disorders: Yes - PSYCHIATRIC Hx Anxiety: Yes - SURGICAL HISTORY Hx Coronary Stent: Yes - ANESTHESIA Hx Anesthesia: Yes Hx Anesthesia Reactions: No Meds Allergies/Adverse Reactions: Allergies Allergy/AdvReac Type Severity Reaction Status Date / Time Penicillins Allergy RASH Verified 07/26/16 13:50 - Medications Medications: Current Medications Acetaminophen (Tylenol 325mg Tab) 650 mg PO Q6 PRN PRN Reason: Pain, Mild (1-3) Acetaminophen (Tylenol 325mg Tab) 650 mg PO Q6 PRN PRN Reason: Fever >100.4 F Alprazolam (Xanax) 0.25 mg PO HS PRN PRN Reason: Anxiety Stop: 06/10/17 09:10 Aspirin (Aspirin Chewable) 81 mg PO DAILY [facility] Atorvastatin Calcium (Lipitor) 80 mg PO DAILY [facility] Last Admin: 06/03/17 12:55 Dose: 80 mg Enoxaparin Sodium (Lovenox) 30 mg SC DAILY [facility] PRN Reason: Protocol Finasteride (Proscar) 5 mg PO HS [facility] Home Med (Ranolazine [Ranexa]) 500 mg PO BID [facility] Isosorbide Mononitrate (Imdur Er) 30 mg PO DAILY [facility] Metoprolol Tartrate (Lopressor) 25 mg PO BID [facility] Last Admin: 06/03/17 17:04 Dose: 25 mg Nitroglycerin (Nitrostat Sl Tab) 0.4 mg SL Q5M PRN PRN Reason: Pain, severe (8-10) Last Admin: 06/03/17 17:07 Dose: 0.4 mg Ondansetron HCl (Zofran Inj) 4 mg IVP Q6 PRN PRN Reason: Nausea/Vomiting Pantoprazole Sodium (Protonix Ec Tab) 40 mg PO DAILY [facility] Pantoprazole Sodium (Protonix Ec Tab) 40 mg PO BID [facility] Last Admin: 06/03/17 17:06 Dose: 40 mg Senna/Docusate Sodium (Senokot S 50 Mg-8.6 Mg) 1 tab PO TID [facility] Last Admin: 06/03/17 12:55 Dose: 1 tab Tamsulosin HCl (Flomax) 0.4 mg PO HS [facility] Physical Exam - Constitutional Appears: Well - Head Exam Head Exam: ATRAUMATIC, NORMAL INSPECTION, NORMOCEPHALIC - Eye Exam Eye Exam: EOMI, Normal appearance, PERRL. absent: Conjunctival injection, Nystagmus, Periorbital swelling, Periorbital tenderness, Scleral icterus Pupil Exam: NORMAL ACCOMODATION, PERRL. absent: Fixed, Irregular, Miosis, Mydriatic, Unequal - ENT Exam ENT Exam: Mucous Membranes Moist, Normal Exam. absent: Mucous Membranes Dry, Normal External Ear Exam, Normal Oropharynx, TM's Normal Bilaterally - Neck Exam Neck exam: Positive for: Normal Inspection. Negative for: Full Rom, Lymphadenopathy, Meningismus, Tenderness, Thyromegaly - Respiratory Exam Respiratory Exam: Clear to Auscultation Bilateral, NORMAL BREATHING PATTERN. absent: Accessory Muscle Use, Chest Wall Tenderness, Decreased Breath Sounds, Prolonged Expiratory Phase, Rales, Rhonchi, Wheezes, Respiratory Distress, Stridor - Cardiovascular Exam Cardiovascular Exam: REGULAR RHYTHM, +S1, +S2, Systolic Murmur. absent: Bradycardia, Tachycardia, Clicks, Diastolic murmur, Gallop, Irregular Rhythm, JVD, RRR, Rubs, +S4 - GI/Abdominal Exam GI & Abdominal Exam: Normal Bowel Sounds, Soft. absent: Bruit, Diminished Bowel Sounds, Distended, Firm, Guarding, Hernia, Hyperactive Bowel Sounds, Hypoactive Bowel Sounds, Mass, Organomegaly, Pulsatile Mass, Rebound, Rigid, Tenderness - Rectal Exam Rectal Exam: Deferred - Extremities Exam Extremities exam: Positive for: normal inspection. Negative for: calf tenderness, full ROM, joint swelling, normal capillary refill, pedal edema, tenderness, pedal pulses present - Back Exam Back exam: NORMAL INSPECTION. absent: CVA tenderness (L), CVA tenderness (R), FULL ROM, muscle spasm, paraspinal tenderness, rash noted, tenderness, vertebral tenderness - Neurological Exam Neurological exam: Alert, CN II-XII Intact, Normal Gait, Oriented x3, Reflexes Normal - Psychiatric Exam Psychiatric exam: Normal Affect, Normal Mood - Skin Skin Exam: Dry, Intact, Normal Color, Warm Results - Vital Signs Recent Vital Signs: Last Vital Signs Temp 99.5 F 06/03/17 20:05 Pulse 72 06/03/17 20:05 Resp 20 06/03/17 20:05 BP 157/69 H 06/03/17 20:05 Pulse Ox 99 06/03/17 20:05 - Labs Result Diagrams: 06/03/17 05:13 06/03/17 05:13 Labs: Laboratory Results - last 24 hr 06/03/17 06/03/17 06/03/17 05:13 05:13 05:13 WBC 6.1 RBC 4.48 Hgb 11.6 L Hct 36.1 MCV 80.6 D MCH 25.8 L MCHC 32.1 L RDW 15.7 H Plt Count 188 MPV 9.2 Neut % (Auto) 72.1 Lymph % (Auto) 12.0 L Travis % (Auto) 11.5 H Eos % (Auto) 3.4 Baso % (Auto) 1.0 Neut # (Auto) 4.4 Lymph # (Auto) 0.7 L Travis # (Auto) 0.7 Eos # (Auto) 0.2 Baso # (Auto) 0.1 Sodium 138 Potassium 4.5 Chloride 105 Carbon Dioxide 24 Anion Gap 14 BUN 27 H Creatinine 2.2 H Est GFR ( Amer) 35 Est GFR (Non-Af Amer) 29 Random Glucose 100 Calcium 8.6 Troponin I 0.0180 Triglycerides Cholesterol LDL Cholesterol Direct HDL Cholesterol Influenza Typ A,B (EIA) Negative for flu a/b 06/03/17 06/03/17 09:44 12:00 WBC RBC Hgb Hct MCV MCH MCHC RDW Plt Count MPV Neut % (Auto) Lymph % (Auto) Travis % (Auto) Eos % (Auto) Baso % (Auto) Neut # (Auto) Lymph # (Auto) Travis # (Auto) Eos # (Auto) Baso # (Auto) Sodium Potassium Chloride Carbon Dioxide Anion Gap BUN Creatinine Est GFR ( Amer) Est GFR (Non-Af Amer) Random Glucose Calcium Troponin I < 0.0120 Triglycerides 382 H Cholesterol 147 LDL Cholesterol Direct 48 HDL Cholesterol 43 Influenza Typ A,B (EIA) - EKG Data EKG Interpreted by: Myself EKG shows normal: Sinus rhythm Rate: Normal - EKG Data EKG comments: LVH, EARLY R WAVE PROG Assessment & Plan (1) CAD (coronary artery disease), [place] coronary artery Status: Acute (2) CAD S/P percutaneous coronary angioplasty Status: Acute (3) Chest pain, rule out acute myocardial infarction Status: Acute Priority: High (4) Hyperlipidemia Status: Chronic Priority: Low (5) Hypertension Status: Chronic Priority: Low - Assessment and Plan (Free Text) Plan: I ASKED DAUGHTER TO OBTAIN THE CARDIAC CATH REPORT FROM [facility]. IF PT HAD MULTIPLE STENOSIS THEN WE WILL PROCEED DIRECTLY TO CARDIAC CATH. IF PT HAD ONE WHICH WAS PCI'D THEN WE MAY BENEFIT FROM STRESS TESTING PRIOR TO CATH. I HAVE STARTED HIS PLAVIX AND ASA. INCREASE METOPROLOL, ADD NORVASC. AVOID ACEI DUE TO CR. ORDERED ECHO. RULE OUT AK. CONTINUE TELE. 55 MIN TOTAL CARE.
[2017-06-04 06:04] LABS: ALB/GLOB RATIO 1.1 (1.0-2.1); ALBUMIN 3.4 g/dL (3.5-5.0); CALCIUM 8.7 mg/dL (8.4-10.2); MAGNESIUM 1.7 MG/DL (1.6-2.3)
[2017-06-04 06:06] LABS: BASO % 1.1 % (0.0-2.0); EOS # 0.2 K/uL (0.0-0.7); EOS % 3.4 % (0.0-4.0); HEMOGLOBIN 12.1 g/dL (12.0-18.0); LYMPH # 1.7 K/uL (1.0-4.3); LYMPH % 36.8 % (20.0-40.0); MEAN CELL VOLUME 80.7 fl (80.0-94.0); MEAN CORPUSCULAR HEMOGLOBIN 26.1 pg (27.0-31.0); MEAN CORPUSCULAR HGB CONC 32.3 g/dL (33.0-37.0); MEAN PLATELET VOLUME 9.3 fl (7.2-11.7); MONO # 0.9 K/uL (0.0-0.8); MONO % 19.9 % (0.0-10.0); NEUT # 1.8 K/uL (1.8-7.0); NEUT % 38.8 % (50.0-75.0); NRBC % 0.3 % (0.0-0.0); RBC 4.65 Mil/uL (4.40-5.90); RED CELL DISTRIBUTION WIDTH 15.7 % (11.5-14.5); WHITE BLOOD COUNT 4.6 K/uL (4.8-10.8)
--- NOTE | 2017-06-04 08:48 | CARD ---
APPROVED REPORT EKG Measurement Heart [id number] <Conclusion> Normal sinus rhythm Nonspecific T wave abnormality Prolonged QT Abnormal ECG
[2017-06-04] MEDS ORDERED: Pantoprazole 40 mg EC Tab PO SCH (09:00)
[2017-06-04] MEDS: Enoxaparin 30 mg Syringe SC SCH (09:09)
[2017-06-04] MEDS: Docusate-Senna 50 mg-8.6 mg Tab PO SCH ×2 (16:51→17:57)
[2017-06-04] MEDS: Pantoprazole 40 mg EC Tab PO SCH ×2 (16:51→17:57)
--- NOTE | 2017-06-04 18:39 | CP.PCM.PN ---
Subjective - Date & Time of Evaluation Date of Evaluation: 06/04/17 Time of Evaluation: 18:36 - Subjective Subjective: CONTINUED CP. [facility]. NO [facility]ATH REPORT SENT. Objective - Vital Signs/Intake and Output Vital Signs (last 24 hours): Temp Pulse Resp BP Pulse Ox 98.1 F 73 14 117/57 L 98 06/04/17 16:56 06/04/17 16:56 06/04/17 16:56 06/04/17 16:56 06/04/17 16:56 Intake and Output: 06/04/17 06/04/17 06:59 18:59 Intake Total 900 Balance 900 - Medications Medications: Current Medications Acetaminophen (Tylenol 325mg Tab) 650 mg PO Q6 PRN PRN Reason: Pain, Mild (1-3) Last Admin: 06/03/17 21:48 Dose: 650 mg Acetaminophen (Tylenol 325mg Tab) 650 mg PO Q6 PRN PRN Reason: Fever >100.4 F Alprazolam (Xanax) 0.25 mg PO HS PRN PRN Reason: Anxiety Stop: 06/10/17 09:10 Last Admin: 06/03/17 21:44 Dose: 0.25 mg Amlodipine Besylate (Norvasc) 5 mg PO DAILY [facility] Aspirin (Aspirin Chewable) 81 mg PO DAILY [facility] Last Admin: 06/04/17 09:06 Dose: 81 mg Atorvastatin Calcium (Lipitor) 80 mg PO DAILY [facility] [place] Last Admin: 06/04/17 16:51 Dose: 80 mg Clopidogrel Bisulfate (Plavix) 75 mg PO DAILY [facility] [place] Last Admin: 06/04/17 09:07 Dose: 75 mg Enoxaparin Sodium (Lovenox) 30 mg SC DAILY [facility] [place] PRN Reason: Protocol Last Admin: 06/04/17 09:09 Dose: 30 mg Finasteride (Proscar) 5 mg PO HS [facility] [place] Last Admin: 06/03/17 21:44 Dose: 5 mg Home Med (Ranolazine [Ranexa]) 500 mg PO BID [facility] Isosorbide Mononitrate (Imdur) 60 mg PO DAILY [facility] Metoprolol Tartrate (Lopressor) 25 mg PO Q12 [facility] Last Admin: 06/04/17 16:51 Dose: 25 mg Nitroglycerin (Nitrostat Sl Tab) 0.4 mg SL Q5M PRN PRN Reason: Pain, severe (8-10) Last Admin: 06/03/17 17:07 Dose: 0.4 mg Ondansetron HCl (Zofran Inj) 4 mg IVP Q6 PRN PRN Reason: Nausea/Vomiting Last Admin: 06/04/17 15:34 Dose: 4 mg Pantoprazole Sodium (Protonix Ec Tab) 40 mg PO BID [facility] Last Admin: 06/04/17 17:57 Dose: 40 mg Senna/Docusate Sodium (Senokot S 50 Mg-8.6 Mg) 1 tab PO TID [facility] Last Admin: 06/04/17 17:57 Dose: 1 tab Tamsulosin HCl (Flomax) 0.4 mg PO HS [facility] Last Admin: 06/03/17 21:44 Dose: 0.4 mg - Labs Labs: 06/04/17 04:20 06/04/17 04:20 - Constitutional Appears: Well - Head Exam Head Exam: ATRAUMATIC, NORMAL INSPECTION, NORMOCEPHALIC - Eye Exam Eye Exam: EOMI, Normal appearance, PERRL. absent: Conjunctival injection, Nystagmus, Periorbital swelling, Periorbital tenderness, Scleral icterus Pupil Exam: NORMAL ACCOMODATION, PERRL - ENT Exam ENT Exam: Mucous Membranes Moist, Normal Exam. absent: Mucous Membranes Dry, Normal External Ear Exam, Normal Oropharynx, TM's Normal Bilaterally - Neck Exam Neck Exam: Full ROM, Normal Inspection. absent: Lymphadenopathy, Meningismus, Tenderness, Thyromegaly - Respiratory Exam Respiratory Exam: Wheezes, NORMAL BREATHING PATTERN. absent: Accessory Muscle Use, Chest Wall Tenderness, Decreased Breath Sounds, Clear to Ausculation Bilateral, Prolonged Expiratory Phase, Rales, Rhonchi, Respiratory Distress, Stridor - Cardiovascular Exam Cardiovascular Exam: REGULAR RHYTHM, +S1, +S2, Murmur. absent: Bradycardia, Tachycardia, Clicks, Diastolic murmur, Gallop, Irregular Rhythm, JVD, RRR, Rubs , +S4 - GI/Abdominal Exam GI & Abdominal Exam: Soft, Normal Bowel Sounds - Rectal Exam Rectal Exam: Deferred - Extremities Exam Extremities Exam: Full ROM, Normal Capillary Refill, Normal Inspection. absent : Calf Tenderness, Joint Swelling, Pedal Edema, Tenderness - Back Exam Back Exam: NORMAL INSPECTION. absent: CVA tenderness (L), CVA tenderness (R), Full ROM, muscle spasm, paraspinal tenderness, rash noted, tenderness, vertebral tenderness - Neurological Exam Neurological Exam: Alert, Awake, CN II-XII Intact, Oriented x3. absent: Abnormal Gait, Altered, Motor Sensory Deficit, Reflexes Normal - Psychiatric Exam Psychiatric exam: Normal Affect, Normal Mood. absent: Agitated, Anxious, Depressed, Flat Affect, Homicidal Ideation, Manic, Suicidal Ideation - Skin Skin Exam: Dry, Intact, Normal Color, Warm. absent: Abrasion, Cyanosis, Diaphoretic, Erythema, Mottled, Pallor, Pallor, Petechiae, Rash, Urticaria, Vesicles Assessment and Plan (1) CAD (coronary artery disease), [place] coronary artery Status: Chronic (2) CAD S/P percutaneous coronary angioplasty Status: Chronic (3) Chest pain, rule out acute myocardial infarction Status: Acute (4) Hyperlipidemia Status: Chronic (5) Hypertension Status: Chronic - Assessment and Plan (Free Text) Assessment: [facility]. pt with pci to [facility] with residual branch disease. pt w recurrent symptoms. he is on asa, plavix and nitrates. trop negative. echo and stress tomorrow. increase isosorbide.
--- NOTE | 2017-06-04 18:44 | CP.PCM.PN ---
Subjective - Date & Time of Evaluation Date of Evaluation: 06/04/17 Time of Evaluation: 10:00 - Subjective Subjective: Pt states he still has some mild chest discomfort no SOB no fever no palpitation no abd pain no N/V Objective - Vital Signs/Intake and Output Vital Signs (last 24 hours): Temp Pulse Resp BP Pulse Ox 98.1 F 73 14 117/57 L 98 06/04/17 16:56 06/04/17 16:56 06/04/17 16:56 06/04/17 16:56 06/04/17 16:56 Intake and Output: 06/04/17 06/04/17 06:59 18:59 Intake Total 900 Balance 900 - Medications Medications: Current Medications Acetaminophen (Tylenol 325mg Tab) 650 mg PO Q6 PRN PRN Reason: Pain, Mild (1-3) Last Admin: 06/03/17 21:48 Dose: 650 mg Acetaminophen (Tylenol 325mg Tab) 650 mg PO Q6 PRN PRN Reason: Fever >100.4 F Alprazolam (Xanax) 0.25 mg PO HS PRN PRN Reason: Anxiety Stop: 06/10/17 09:10 Last Admin: 06/03/17 21:44 Dose: 0.25 mg Amlodipine Besylate (Norvasc) 5 mg PO DAILY [facility] Aspirin (Aspirin Chewable) 81 mg PO DAILY [facility] Last Admin: 06/04/17 09:06 Dose: 81 mg Atorvastatin Calcium (Lipitor) 80 mg PO DAILY [facility] Last Admin: 06/04/17 16:51 Dose: 80 mg Clopidogrel Bisulfate (Plavix) 75 mg PO DAILY [facility] Last Admin: 06/04/17 09:07 Dose: 75 mg Enoxaparin Sodium (Lovenox) 30 mg SC DAILY [facility] PRN Reason: Protocol Last Admin: 06/04/17 09:09 Dose: 30 mg Finasteride (Proscar) 5 mg PO HS [facility] Last Admin: 06/03/17 21:44 Dose: 5 mg Home Med (Ranolazine [Ranexa]) 500 mg PO BID [facility] Isosorbide Mononitrate (Imdur) 60 mg PO DAILY [facility] Metoprolol Tartrate (Lopressor) 25 mg PO Q12 [facility] Last Admin: 06/04/17 16:51 Dose: 25 mg Nitroglycerin (Nitrostat Sl Tab) 0.4 mg SL Q5M PRN PRN Reason: Pain, severe (8-10) Last Admin: 06/03/17 17:07 Dose: 0.4 mg Ondansetron HCl (Zofran Inj) 4 mg IVP Q6 PRN PRN Reason: Nausea/Vomiting Last Admin: 06/04/17 15:34 Dose: 4 mg Pantoprazole Sodium (Protonix Ec Tab) 40 mg PO BID [facility] Last Admin: 06/04/17 17:57 Dose: 40 mg Senna/Docusate Sodium (Senokot S 50 Mg-8.6 Mg) 1 tab PO TID [facility] Last Admin: 06/04/17 17:57 Dose: 1 tab Tamsulosin HCl (Flomax) 0.4 mg PO HS [facility] Last Admin: 06/03/17 21:44 Dose: 0.4 mg - Labs Labs: 06/04/17 04:20 06/04/17 04:20 - Constitutional Appears: No Acute Distress - Head Exam Head Exam: NORMAL INSPECTION, NORMOCEPHALIC - Eye Exam Eye Exam: EOMI, Normal appearance Pupil Exam: NORMAL ACCOMODATION - ENT Exam ENT Exam: Mucous Membranes Moist, Normal External Ear Exam - Neck Exam Neck Exam: Full ROM. absent: Meningismus - Respiratory Exam Respiratory Exam: NORMAL BREATHING PATTERN. absent: Respiratory Distress - Cardiovascular Exam Cardiovascular Exam: REGULAR RHYTHM, +S1, +S2 - GI/Abdominal Exam GI & Abdominal Exam: Soft, Normal Bowel Sounds. absent: Tenderness - Extremities Exam Extremities Exam: Full ROM, Normal Capillary Refill. absent: Calf Tenderness - Back Exam Back Exam: Full ROM. absent: CVA tenderness (L), CVA tenderness (R) - Neurological Exam Neurological Exam: Alert, Awake, CN II-XII Intact, Oriented x3 - Psychiatric Exam Psychiatric exam: Normal Affect, Normal Mood - Skin Skin Exam: Dry, Normal Color, Warm Assessment and Plan (1) Chest pain Status: Acute (2) CKD (chronic kidney disease) stage 4, GFR 15-29 ml/min Status: Chronic (3) CAD (coronary artery disease), [place] coronary artery Status: Chronic (4) CAD S/P percutaneous coronary angioplasty Status: Chronic (5) Benign prostatic hyperplasia Status: Chronic (6) Hyperlipidemia Status: Chronic (7) Hypertension Status: Chronic - Assessment and Plan (Free Text) Assessment: 87 y/o male with PMH CAD with 1 stent placed in October 2016, dyslipidemia, CKD stage IV, hypertension , history of gastric ulcer, BPH, anxiety, CVA brought to ER for evaluation for chest pain. He states that experienced sudden midsternal chest pain pressure like 10/10 in intensity early in the morning , waking him up from sleep. Patient states that he also felt lightheaded when he got up from bed. He denies any other associated symptoms or radiation . Has been having dry cough , his pain got better after Nitro SL with 5/10 in intensity. He states that he used to get chest pain and SOB with ambulation before and after he got stent his symptoms improved. Complains of some SOB with ambulation , denies orthopnea. 1. Chest pain rule out ACS Hx of CAD s/p Stent cont ASA, Statin, NTG, Nitrates, BB and Ranexa cont Tele monitoring trop x 3 negative Cardiology consulted : DR Alvarez -plan for Stess Test in am 2. CKD stage IV stable 3. Hypertension Continue metoprolol, Imdur and Norvasc Indur increased to 60mg daily 4. BPH on flomax and Proscar 5.Dyslipidemia on statin 6. History of CVA on ASa , statin , BP control 7. DVt prophylaxis SCD lovenox renal dose 8. GI prophylaxis Protonix
[2017-06-05 06:49] LABS: CALCIUM 8.6 mg/dL (8.4-10.2)
[2017-06-05 08:25] VITALS: RESP 20
[2017-06-05] MEDS ORDERED: Aminophylline 25 mg/ml Inj ONE (10:59)
[2017-06-05] MEDS: Docusate-Senna 50 mg-8.6 mg Tab PO SCH ×3 (11:38→17:01)
[2017-06-05] MEDS: Enoxaparin 30 mg Syringe SC SCH (11:42)
[2017-06-05] MEDS: Pantoprazole 40 mg EC Tab PO SCH ×2 (11:43→17:01)
[2017-06-05 15:31] VITALS: BP 120/63; PULSE 74; TEMP 97.9; O2SAT 97
--- NOTE | 2017-06-05 16:15 | CP.PCM.PN ---
Subjective - Date & Time of Evaluation Date of Evaluation: 06/05/17 Time of Evaluation: 16:15 - Subjective Subjective: MINIMAL CP AT REST. PT IS WHEEZING WHILE LAYING FLAT, HOWEVER NOT COMPLAINING OF SOB. ST REVEALS MILD FIXED INFERIOR/INFEROSEPTAL DEFECT WITH NML WALL MOTION (MOST CW DIAPHRAM ATTENUATION) EF NML. Objective - Vital Signs/Intake and Output Vital Signs (last 24 hours): Temp Pulse Resp BP Pulse Ox 97.9 F 74 20 120/63 97 06/05/17 15:30 06/05/17 15:30 06/05/17 15:30 06/05/17 15:30 06/05/17 15:30 - Medications Medications: Current Medications Acetaminophen (Tylenol 325mg Tab) 650 mg PO Q6 PRN PRN Reason: Pain, Mild (1-3) Last Admin: 06/05/17 11:36 Dose: 650 mg Acetaminophen (Tylenol 325mg Tab) 650 mg PO Q6 PRN PRN Reason: Fever >100.4 F Alprazolam (Xanax) 0.25 mg PO HS PRN PRN Reason: Anxiety Stop: 06/10/17 09:10 Last Admin: 06/04/17 21:30 Dose: 0.25 mg Amlodipine Besylate (Norvasc) 5 mg PO DAILY [facility] Last Admin: 06/05/17 11:40 Dose: 5 mg Aspirin (Aspirin Chewable) 81 mg PO DAILY [facility] Last Admin: 06/05/17 11:37 Dose: 81 mg Atorvastatin Calcium (Lipitor) 80 mg PO DAILY [facility] Last Admin: 06/05/17 11:44 Dose: 80 mg Clopidogrel Bisulfate (Plavix) 75 mg PO DAILY [facility] Last Admin: 06/05/17 11:39 Dose: 75 mg Enoxaparin Sodium (Lovenox) 30 mg SC DAILY [facility] PRN Reason: Protocol Last Admin: 06/05/17 11:42 Dose: 30 mg Finasteride (Proscar) 5 mg PO HS [facility] Last Admin: 06/04/17 21:30 Dose: 5 mg Home Med (Ranolazine [Ranexa]) 500 mg PO BID [facility] Isosorbide Mononitrate (Imdur) 60 mg PO DAILY [facility] Last Admin: 06/05/17 11:39 Dose: 60 mg Metoprolol Tartrate (Lopressor) 25 mg PO Q12 [facility] Last Admin: 06/05/17 11:44 Dose: 25 mg Nitroglycerin (Nitrostat Sl Tab) 0.4 mg SL Q5M PRN PRN Reason: Pain, severe (8-10) Last Admin: 06/03/17 17:07 Dose: 0.4 mg Ondansetron HCl (Zofran Inj) 4 mg IVP Q6 PRN PRN Reason: Nausea/Vomiting Last Admin: 06/04/17 15:34 Dose: 4 mg Pantoprazole Sodium (Protonix Ec Tab) 40 mg PO BID [facility] Last Admin: 06/05/17 11:43 Dose: 40 mg Senna/Docusate Sodium (Senokot S 50 Mg-8.6 Mg) 1 tab PO TID [facility] Last Admin: 06/05/17 13:05 Dose: Not Given Tamsulosin HCl (Flomax) 0.4 mg PO HS [facility] Last Admin: 06/04/17 21:30 Dose: 0.4 mg - Labs Labs: 06/04/17 04:20 06/05/17 05:30 - Constitutional Appears: Well - Head Exam Head Exam: ATRAUMATIC, NORMAL INSPECTION, NORMOCEPHALIC - Eye Exam Eye Exam: EOMI, Normal appearance, PERRL. absent: Conjunctival injection, Nystagmus, Periorbital swelling, Periorbital tenderness, Scleral icterus Pupil Exam: NORMAL ACCOMODATION, PERRL - ENT Exam ENT Exam: Mucous Membranes Moist, Normal Exam. absent: Mucous Membranes Dry, Normal External Ear Exam, Normal Oropharynx, TM's Normal Bilaterally - Neck Exam Neck Exam: Full ROM, Normal Inspection. absent: Lymphadenopathy, Meningismus, Tenderness, Thyromegaly - Respiratory Exam Respiratory Exam: Wheezes, NORMAL BREATHING PATTERN. absent: Accessory Muscle Use, Chest Wall Tenderness, Decreased Breath Sounds, Clear to Ausculation Bilateral, Prolonged Expiratory Phase, Rales, Rhonchi, Respiratory Distress, Stridor - Cardiovascular Exam Cardiovascular Exam: REGULAR RHYTHM, +S1, +S2, Murmur. absent: Bradycardia, Tachycardia, Clicks, Diastolic murmur, Gallop, Irregular Rhythm, JVD, RRR, Rubs , +S4 - GI/Abdominal Exam GI & Abdominal Exam: Soft, Normal Bowel Sounds. absent: Bruit, Distended, Firm , Guarding, Rigid, Tenderness, Diminished Bowel Sounds, Hernia, Hyperactive Bowel Sounds, Hypoactive Bowel Sounds, Organomegaly, Pulsatile Mass, Rebound, Mass - Rectal Exam Rectal Exam: Deferred - Extremities Exam Extremities Exam: Full ROM, Normal Capillary Refill, Normal Inspection. absent : Calf Tenderness, Joint Swelling, Pedal Edema, Tenderness - Back Exam Back Exam: NORMAL INSPECTION. absent: CVA tenderness (L), CVA tenderness (R), Full ROM, muscle spasm, paraspinal tenderness, rash noted, tenderness, vertebral tenderness - Neurological Exam Neurological Exam: Alert, Awake, CN II-XII Intact, Oriented x3. absent: Abnormal Gait, Altered, Motor Sensory Deficit, Normal Gait, Reflexes Normal - Psychiatric Exam Psychiatric exam: Normal Affect, Normal Mood. absent: Agitated, Anxious, Depressed, Flat Affect, Homicidal Ideation, Manic, Suicidal Ideation - Skin Skin Exam: Dry, Intact, Normal Color, Warm. absent: Abrasion, Cyanosis, Diaphoretic, Erythema, Mottled, Pallor, Pallor, Petechiae, Rash, Urticaria, Vesicles Assessment and Plan (1) CAD (coronary artery disease), [place] coronary artery Status: Chronic (2) CAD S/P percutaneous coronary angioplasty Status: Chronic (3) Chest pain, rule out acute myocardial infarction Status: Acute (4) Hyperlipidemia Status: Chronic (5) Hypertension Status: Chronic - Assessment and Plan (Free Text) Plan: ST REVEALS MILD FIXED INFERIOR/INFEROSEPTAL DEFECT WITH NML WALL MOTION (MOST CW DIAPHRAM ATTENUATION) EF NML. PTS IMDUR INCREASED YESTERDAY. HE IS ON DUAL ANTIPLTS. ALSO ON RANEXA. PTS BP WELL CONTROLLED TODAY. PTS PAIN UNLIKELY TO BE CARDIAC. PT MAY BE D/C TO HOME FROM CARDIAC POINT OF VIEW.
--- NOTE | 2017-06-05 17:21 | CP.PCM.DIS ---
Provider - Provider Date of Admission: 06/04/17 18:42 Attending physician: Jovanni Mcginnis Primary care physician: [facility] Consults: Cardio: Dr Alvarez Time Spent in preparation of Discharge (in minutes): 40 Diagnosis - Discharge Diagnosis (1) Chest pain Status: Acute Priority: High (2) CKD (chronic kidney disease) stage 4, GFR 15-29 ml/min Status: Chronic (3) CAD (coronary artery disease), [place] coronary artery Status: Chronic (4) CAD S/P percutaneous coronary angioplasty Status: Chronic (5) Benign prostatic hyperplasia Status: Chronic Priority: Low (6) Hyperlipidemia Status: Chronic Priority: Low (7) Hypertension Status: Chronic Priority: Low Hospital Course - Lab Results Lab Results: Most Recent Lab Values WBC 4.6 K/uL (4.8-10.8) L 06/04/17 04:20 RBC 4.65 Mil/uL (4.40-5.90) 06/04/17 04:20 Hgb 12.1 g/dL (12.0-18.0) 06/04/17 04:20 Hct 37.5 % (35.0-51.0) 06/04/17 04:20 MCV 80.7 fl (80.0-94.0) 06/04/17 04:20 MCH 26.1 pg (27.0-31.0) L 06/04/17 04:20 MCHC 32.3 g/dL (33.0-37.0) L 06/04/17 04:20 RDW 15.7 % (11.5-14.5) H 06/04/17 04:20 Plt Count 172 K/uL (130-400) 06/04/17 04:20 MPV 9.3 fl (7.2-11.7) 06/04/17 04:20 Neut % (Auto) 38.8 % (50.0-75.0) L 06/04/17 04:20 Lymph % (Auto) 36.8 % (20.0-40.0) 06/04/17 04:20 [place] % (Auto) 19.9 % (0.0-10.0) H 06/04/17 04:20 Eos % (Auto) 3.4 % (0.0-4.0) 06/04/17 04:20 Baso % (Auto) 1.1 % (0.0-2.0) 06/04/17 04:20 Neut # (Auto) 1.8 K/uL (1.8-7.0) 06/04/17 04:20 Lymph # (Auto) 1.7 K/uL (1.0-4.3) 06/04/17 04:20 [place] # (Auto) 0.9 K/uL (0.0-0.8) H 06/04/17 04:20 Eos # (Auto) 0.2 K/uL (0.0-0.7) 06/04/17 04:20 Baso # (Auto) 0.0 K/uL (0.0-0.2) 06/04/17 04:20 Sodium 139 mmol/l (132-148) 06/05/17 05:30 Potassium 4.5 MMOL/L (3.6-5.0) 06/05/17 05:30 Chloride 103 mmol/L (98-107) 06/05/17 05:30 Carbon Dioxide 26 mmol/L (22-30) 06/05/17 05:30 Anion Gap 15 (10-20) 06/05/17 05:30 BUN 28 mg/dl (9-20) H 06/05/17 05:30 Creatinine 2.4 mg/dl (0.8-1.5) H 06/05/17 05:30 Est GFR ( Amer) 31 06/05/17 05:30 Est GFR (Non-Af Amer) 26 06/05/17 05:30 Random Glucose 96 mg/dL (75-110) 06/05/17 05:30 Calcium 8.6 mg/dL (8.4-10.2) 06/05/17 05:30 Magnesium 1.7 MG/DL (1.6-2.3) 06/04/17 04:20 Total Bilirubin 0.4 mg/dl (0.2-1.3) 06/04/17 04:20 AST 21 U/L (17-59) 06/04/17 04:20 ALT 24 U/L (21-72) 06/04/17 04:20 Alkaline Phosphatase 68 U/L (38-126) 06/04/17 04:20 Troponin I 0.0150 ng/mL (0.00-0.120) 06/03/17 20:24 Total Protein 6.5 G/DL (6.3-8.2) 06/04/17 04:20 Albumin 3.4 g/dL (3.5-5.0) L 06/04/17 04:20 Globulin 3.1 gm/dL (2.2-3.9) 06/04/17 04:20 Albumin/Globulin Ratio 1.1 (1.0-2.1) 06/04/17 04:20 Triglycerides 143 mg/DL (0-149) D 06/05/17 05:30 Cholesterol 145 mg/dL (0-199) 06/05/17 05:30 LDL Cholesterol Direct 53 mg/dL (0-129) 06/05/17 05:30 HDL Cholesterol 46 MG/DL (30-70) 06/05/17 05:30 Influenza Typ A,B (EIA) Negative for flu a/b (NEGATIVE) 06/03/17 05:13 - Hospital Course Hospital Course: 87 y/o male with PMH CAD with 1 stent placed in October 2016, dyslipidemia, CKD stage IV, hypertension , history of gastric ulcer, BPH, anxiety, CVA brought to ER for evaluation for chest pain. He states that he experienced sudden midsternal chest pain pressure like 10/10 in intensity early in the morning , waking him up from sleep. Patient states that he also felt lightheaded when he got up from bed. He denies any other associated symptoms or radiation. Pt was admitted to Tele . Trop x 3 negative. Myocardial Perfusion Scan showed fixed defect 1. Chest pain rule out ACS needs further Cardiac work up as outpt Hx of CAD s/p Stent cont ASA, Statin, NTG, Nitrates, BB and [place] Tele monitoring trop x 3 negative Cardiology consulted : DR Alvarez - Myocardial Perfusion Scan done - read by Dr Alvarez - mild fixed INFERIOR/ INFEROSEPTAL defect, normal wall motion Dr Alvarez cleared pt for discharge Pt's CP resolved 2. CKD stage IV stable 3. Hypertension Continue metoprolol, Imdur and Norvasc Indur increased to 60mg daily 4. BPH on flomax and Proscar 5.Dyslipidemia on statin 6. History of CVA on ASa , statin , BP control 7. DVt prophylaxis SCD lovenox renal dose 8. GI prophylaxis Protonix Discharge Exam - Head Exam Head Exam: ATRAUMATIC, NORMAL INSPECTION, NORMOCEPHALIC - Eye Exam Eye Exam: EOMI, Normal appearance Pupil Exam: NORMAL ACCOMODATION - ENT Exam ENT Exam: Mucous Membranes Moist, Normal External Ear Exam - Neck Exam Neck exam: Full Rom - Respiratory Exam Respiratory Exam: Rhonchi, NORMAL BREATHING PATTERN. absent: Respiratory Distress - Cardiovascular Exam Cardiovascular Exam: REGULAR RHYTHM, +S1, +S2 - GI/Abdominal Exam GI & Abdominal Exam: Normal Bowel Sounds, Soft. absent: Tenderness - Extremities Exam Extremities exam: full ROM, normal capillary refill - Back Exam Back exam: FULL ROM. absent: CVA tenderness (L), CVA tenderness (R) - Neurological Exam Neurological exam: Alert, CN II-XII Intact, Oriented x3, Reflexes Normal - Psychiatric Exam Psychiatric exam: Normal Affect, Normal Mood - Skin Skin Exam: Dry, Normal Color, Warm Discharge Plan - Discharge Medications Prescriptions: amLODIPine [Norvasc] 5 mg PO DAILY #30 tab Clopidogrel [Plavix] 75 mg PO DAILY #30 tab Isosorbide Mononitrate [Imdur] 60 mg PO DAILY #30 tab - Follow Up Plan Condition: GOOD Disposition: HOME/ ROUTINE Instructions: Clopidogrel (By mouth), Coronary Artery Disease (DC), Chest Pain (DC) Additional Instructions: ff up with PMD and Cardio at [facility] hacer linda con el cardiologo y doctor primario del [facility] hui pronto possible
--- NOTE | 2017-06-06 11:03 | CARD ---
APPROVED REPORT Protocol: LEXISCAN Test Type: Stress Nuclear Medications: METOPROL, GABAPENTIN, ASA, PLAVIX, ATORVASTATIN Medical History: CAD WITH 1 STENT PLACEMENT OCTOBER 2016, DYSLIPIDEMIA, CKD STAGE IV, GASTRIC ULCER PH, ANXIETY, CVA ? Target HR: 134 bpm Resting ECG: T wave inversion Resting Heart Rate: 74 bpm Resting Blood Pressure: 130/80mmHg submaximum (85%): 114 bpm TEST SUMMARY PREINJECTPRE-INJEC71:[id number]/80.0. [id number]/80.0. INJECTIONNS FLUSH00:[id number]/78.0. INJECTIONNUC MED00:[id number]/78.0. [id number]:[id number]/69.0. PROCEDURE Pharmacologic stress testing was performed using 0.4mg per 5ml of regadenoson given intravenously over 7-10 seconds. POST EXERCISE Reason for Termination: Completed the study Target HR: No Max HR: 85 bpm 73% of Maximum Predicted HR: 134 bpm Exercise duration: 01:00 min:sec, 0 Stage Exercise capacity: 1.0METs Max Blood Pressure: 162/60mmHg Blood Pressure response to exercise: Pharmacological Heart Rate response to exercise: Pharmacological Chest Pain: No, none Angina index: 0 Arrhythmia: No, none ST Change: No, none Deviation: 0 mm Clinical Indications Under Appropriate Use Criteria CAD history and chest pain Stress EKG Interpretation Normal pharmacological portion of the stress test. EXAM: Myocardial Perfusion REST/STRESS Image QualityGood Imaging Protocol The imaging protocol used to acquire images was Rest Tc-99m/stress Tc-99m 1 day Rest Spect myocardial perfusion imaging was performed in supine position 30 minutes following the injection of 10 mCi of Tc-99 Myoview. Time of rest injection: 7:52 Time of rest imagin:30 At peak stress, the patient was injected intravenously with 30mCi of Tc-99 tetrofosmin after an infusion time of minutes and seconds. Time of stress injection: 11:20 Time of stress imagin:00 Gated Stress Spect was performed 80 minutes after intravenous Tc-99 Myoview injection. The images were gated to evaluate regional wall motion and calculate ventricular ejection fraction. NUCLEAR IMAGE INTERPRETATION The rest and stress images show normal perfusion, normal contraction and thickening. LV Perfusion The inferior and posterior [place] had what appeared to be slightly decreased tracer uptake on the stress images with better uptake on the resting images. This may simply be diaphragm attenuation as opposed to ischemia. The other segment of the left ventricle had good perfusion. This reading was on the standard three tomographic images. Wall Motion normal LVEF of 64% CONCLUSION 1. The patient is an 87 year old male with a history of CAD with a right coronary stent insertion in 2017 who is now referred for a pharmacological stress test due to chest pain. His medicines include metoprolol, atorvastatin, aspirin and clopidogrel. The resting EKG shows sinus rhythm, LVE and non-specific ST-T changes. The patient was hooked-up to a continuous monitoring analyst and lexiscan at a dose of 0.4 mg/5ml was injected intravenously. The patient tolerated the lexiscan well without any chest pain or EKG changes. The vital signs were stable and there weren't any side effects from the lexiscan. The nuclear scan results are as stated above. The LVEF on the gated study was 64%. Recommendation This patient was discussed with Dr. Altagracia Christian who concurrs with the nuclear scan interpretation and will make decisions on his cardiac care.
== END 2017-06-05 18:00 | disposition home or self-care (01) | DRG 313 ==
LOC: H.ER 04:12 → H.ERHOLD 06:01 → H.TEL 17:27 → OBSVTOIN 06-04 18:42
PROVIDERS: ADMIT Internal Medicine; ATTEND Internal Medicine
DX: R07.89 Other chest pain (principal); I25.10 Atherosclerotic heart disease of native coronary artery without angina pectoris; N18.4 Chronic kidney disease, stage 4 (severe); N40.0 Benign prostatic hyperplasia without lower urinary tract symptoms; Z88.0 Allergy status to penicillin; Z95.5 Presence of coronary angioplasty implant and graft; I12.9 Hypertensive chronic kidney disease with stage 1 through stage 4 chronic kidney disease, or unspecified chronic kidney disease; K29.70 Gastritis, unspecified, without bleeding; E78.5 Hyperlipidemia, unspecified; F41.9 Anxiety disorder, unspecified; M19.90 Unspecified osteoarthritis, unspecified site; R32 Unspecified urinary incontinence; Z86.73 Personal history of transient ischemic attack (TIA), and cerebral infarction without residual deficits

== ENCOUNTER 2017-12-05 20:25 | Inpatient (IN) | payer OTHER ==
[2017-12-05 20:41] VITALS: BMI 22.7
[2017-12-05 21:41] LABS: BASO # 0.1 K/uL (0.0-0.2); EOS # 0.4 K/uL (0.0-0.7); EOS % 5.2 % (0.0-4.0); HEMOGLOBIN 12.7 g/dL (12.0-18.0); LYMPH # 2.8 K/uL (1.0-4.3); LYMPH % 37.8 % (20.0-40.0); MEAN CELL VOLUME 82.1 fl (80.0-94.0); MEAN CORPUSCULAR HEMOGLOBIN 26.9 pg (27.0-31.0); MEAN CORPUSCULAR HGB CONC 32.8 g/dL (33.0-37.0); MEAN PLATELET VOLUME 8.7 fl (7.2-11.7); MONO # 0.7 K/uL (0.0-0.8); MONO % 9.6 % (0.0-10.0); NEUT # 3.4 K/uL (1.8-7.0); NEUT % 46.4 % (50.0-75.0); NRBC % 0.1 % (0.0-0.0); RBC 4.71 Mil/uL (4.40-5.90); WHITE BLOOD COUNT 7.4 K/uL (4.8-10.8)
[2017-12-05] MEDS ORDERED: Nitroglycerin 2% Ointment Foilpak UD TOP STA (21:45)
[2017-12-05 21:55] LABS: PROTHROMBIN TIME 10.6 Seconds (9.8-13.1)
[2017-12-05 21:57] LABS: PARTIAL THROMBOPLASTIN TIME 38.9 Seconds (25.6-37.1)
[2017-12-05 21:59] LABS: ALB/GLOB RATIO 1.3 (1.0-2.1); CALCIUM 8.9 mg/dL (8.4-10.2)
[2017-12-05 22:11] LABS: TROPONIN I 0.012 ng/mL (0.00-0.120)
[2017-12-05] MEDS ORDERED: Nitroglycerin 2% Ointment Foilpak UD TOP ONE (22:25)
--- NOTE | 2017-12-05 22:42 | ED PDOC ---
HPI: Chest Pain Time Seen by Provider: 12/05/17 20:52 Chief Complaint (Nursing): Chest Pain Chief Complaint (Provider): Chest pain History Per: Patient History/Exam Limitations: no limitations Onset/Duration Of Symptoms: Hrs Current Symptoms Are (Timing): Still Present Quality: "Pain" Associated Symptoms: denies: Nausea, Dyspnea, Diaphoresis, Syncope Additional History Per: Patient Additional Complaint(s): 87yo male, history of CAD, angioplasty in 06/2017, comes to ER with complaints of chest pain since 11am today. Patient states the pain initially starts in his epigastric region and radiates to his chest and back; patient states the pain is pressure like and denies any burning sensation. He denies any nausea, vomiting, diaphoresis or shortness of breath. He has no other medical complaints. Cardiolgist: Dr. Moreno Past Medical History Reviewed: Historical Data, Nursing Documentation, Vital Signs Vital Signs: Last Vital Signs Temp 97.5 F L 12/05/17 20:39 Pulse 57 L 12/05/17 22:32 Resp 16 12/05/17 22:32 BP 152/83 H 12/05/17 22:32 Pulse Ox 99 12/06/17 01:00 - Medical History PMH: Anemia, Anxiety, Arthritis, Back Problems, Benign Prostatic Hyperplasia, CAD, Gastritis, HTN, Hypercholesterolemia, Hyperlipidemia, Chronic Kidney Disease - Surgical History Surgical History: Coronary Stent, Hernia Repair Denies: Pacemaker - Family History Family History: States: Unknown Family Hx - Home Medications Home Medications: Ambulatory Orders Medication Instructions Recorded ALPRAZolam [Xanax] 0.25 mg PO DAILY 12/06/17 Acetaminophen [Non-Aspirin Pain 325 mg PO Q6 PRN 12/06/17 Relief] Cetirizine HCl [All Day Allergy 10 mg PO DAILY 12/06/17 Relief] Clopidogrel [Plavix] 75 mg PO DAILY 12/06/17 Cyanocobalamin [Vitamin B12] 500 mcg PO DAILY 12/06/17 DiphenhydrAMINE [Benadryl] 25 mg PO DAILY 12/06/17 Docusate Sodium/Sennosides A 1 tab PO TID 12/06/17 [Senokot S 50 MG-8.6 MG] Isosorbide Mononitrate [Imdur] 60 mg PO DAILY 12/06/17 Metoprolol Tartrate [Lopressor] 25 mg PO BID 12/06/17 Nitroglycerin [Nitrotab] 0.3 mg SL Q5MIN PRN MDD 3 tabs 12/06/17 - Allergies Allergies/Adverse Reactions: Allergies Allergy/AdvReac Type Severity Reaction Status Date / Time Penicillins Allergy RASH Verified 07/26/16 13:50 Review of Systems ROS Statement: Except As Marked, All Systems Reviewed And Found Negative Constitutional: Negative for: Sweats Cardiovascular: Positive for: Chest Pain Respiratory: Negative for: Shortness of Breath Gastrointestinal: Negative for: Nausea, Vomiting Physical Exam - Reviewed Nursing Documentation Reviewed: Yes Vital Signs Reviewed: Yes - Physical Exam Appears: Positive for: Non-toxic, No Acute Distress Head Exam: Positive for: ATRAUMATIC, NORMAL INSPECTION, NORMOCEPHALIC Skin: Positive for: Normal Color Eye Exam: Positive for: EOMI, Normal appearance, PERRL Neck: Positive for: Normal, Painless ROM Cardiovascular/Chest: Positive for: Regular Rate, Rhythm, Chest Non Tender. Negative for: Murmur Respiratory: Positive for: Normal Breath Sounds. Negative for: Respiratory Distress Gastrointestinal/Abdominal: Positive for: Normal Exam, Soft. Negative for: Tenderness Back: Positive for: Normal Inspection Extremity: Positive for: Normal ROM. Negative for: Pedal Edema Neurologic/Psych: Positive for: Alert, Oriented. Negative for: Motor/Sensory Deficits - Laboratory Results Result Diagrams: 12/05/17 21:30 12/05/17 21:30 - ECG O2 Sat by Pulse Oximetry: 99 (RA) Pulse Ox Interpretation: Normal Medical Decision Making Medical Decision Making: Impression: 87yo male with chest pain, known history of CAD Plan: -- Labs -- EKG -- Chest x-ray -- Topical NTG Time: 00:50 --Labs reviewed and show no clincally significant abnormalities. Chest x-ray demonstrates no active disease. Patient will be placed on observation. Diagnosed with chest pain. Case discussed with Dr. Persaud, medicine economic forecaster. Scribe Attestation: Documented by Danette Clancy, acting as a scribe for Cali Ga MD. Provider Scribe Attestation: All medical record entries made by the Scribe were at my direction and personally dictated by me. I have reviewed the chart and agree that the record accurately reflects my personal performance of the history, physical exam, medical decision making, and the department course for this patient. I have also personally directed, reviewed, and agree with the discharge instructions and disposition. Disposition - Clinical Impression Clinical Impression: Chest pain Discussed With : Isaiah Persaud - Disposition Disposition Time: 00:50 Condition: FAIR - Pt Status Changed To: Hospital Disposition Of: Observation - POA Present On Arrival: None
--- NOTE | 2017-12-06 06:08 | CARD ---
APPROVED REPORT Date of service: 12/05/2017 <Conclusion> Normal sinus rhythm Nonspecific ST and T wave abnormality Abnormal ECG
--- NOTE | 2017-12-06 09:13 | RAD ---
Date of service: 12/05/2017 HISTORY: chest pain COMPARISON: Chest frontal chest radiograph 06/03/2017. FINDINGS: LUNGS: No active pulmonary disease. PLEURA: No significant pleural effusion identified, no pneumothorax apparent. CARDIOVASCULAR: Normal. OSSEOUS STRUCTURES: No significant abnormalities. VISUALIZED UPPER ABDOMEN: Normal. OTHER FINDINGS: Lower mediastinal surgical clips reiterated. IMPRESSION: No interval acute cardiopulmonary disease appreciated.
[2017-12-06 09:31] LABS: BASO # 0.1 K/uL (0.0-0.2); BASO % 0.8 % (0.0-2.0); EOS # 0.3 K/uL (0.0-0.7); EOS % 4.3 % (0.0-4.0); HEMOGLOBIN 13.9 g/dL (12.0-18.0); LYMPH # 2.3 K/uL (1.0-4.3); LYMPH % 32.5 % (20.0-40.0); MEAN CELL VOLUME 82.3 fl (80.0-94.0); MEAN CORPUSCULAR HEMOGLOBIN 27.3 pg (27.0-31.0); MEAN CORPUSCULAR HGB CONC 33.2 g/dL (33.0-37.0); MEAN PLATELET VOLUME 8.9 fl (7.2-11.7); MONO # 0.6 K/uL (0.0-0.8); MONO % 8.6 % (0.0-10.0); NEUT # 3.8 K/uL (1.8-7.0); NEUT % 53.8 % (50.0-75.0); NRBC % 0.1 % (0.0-0.0); RBC 5.08 Mil/uL (4.40-5.90); RED CELL DISTRIBUTION WIDTH 16.3 % (11.5-14.5); WHITE BLOOD COUNT 7.1 K/uL (4.8-10.8)
[2017-12-06 09:35] LABS: URINE BILIRUBIN NEGATIVE (NEGATIVE); URINE BLOOD NEGATIVE (NEGATIVE); URINE CLARITY CLEAR (Clear); URINE COLOR STRAW (YELLOW); URINE GLUCOSE (UA) NEG (Normal); URINE LEUKOCYTE ESTERASE NEG Leu/uL (Negative); URINE PROTEIN 100 mg/dL (NEGATIVE); URINE UROBILINOGEN 0.2-1.0 mg/dL (0.2-1.0)
[2017-12-06 09:48] LABS: ALB/GLOB RATIO 1.3 (1.0-2.1); ALBUMIN 4.3 g/dL (3.5-5.0); CALCIUM 9.3 mg/dL (8.4-10.2)
[2017-12-06 09:58] LABS: T4 7.72 ug/dl (5.5-11.0)
[2017-12-06] MEDS: CYANOCOBALAMIN 500 MCG TAB PO SCH (11:33)
--- NOTE | 2017-12-06 13:31 | CARD ---
APPROVED REPORT Date of service: 12/06/2017 EXAM: Two-dimensional and M-mode echocardiogram with Doppler and color Doppler. Other Information Quality : AverageRhythm : NSR INDICATION Chest Pain 2D DIMENSIONS IVSd0.81 (0.7-1.1cm)LVDd3.72 (3.9-5.9cm) PWd0.82 (0.7-1.1cm)IVSs0.85 (0.8-1.2cm) LVDs3.13 (2.5-4.0cm)FS (%) 15.7 % PWs1.06 (0.8-1.2cm) M-Mode DIMENSIONS Left Atrium (MM)3.36 (2.5-4.0cm)Aortic Root3.09 (2.2-3.7cm) Aortic Cusp Exc.1.79 (1.5-2.0cm) Aortic Valve AoV Peak Brwqvliq539.2cm/sAoV VTI23.5cmAO Peak GR.6mmHg LVOT Peak Mwmeptke06.5cm/sLVOT VTI16.14cmAO Mean GR.3mmHg AI P 1/2 [id number] Mitral Valve MV E Lwgpfyik23.2cm/sMV DECEL [id number] A Lkunwyva44.4cm/s MV DRE21itZ/A ratio0.5MVA (PHT)2.67cm2 TDI Lateral E' Peak V7.66cm/sMedial E' Peak V3.59cm/sE/Lateral E'5.9 E/Medial E'12.6 Tricuspid Valve TR Peak Tdufzulw312bd/sRAP [id number] Peak Gr.15mmHg [id number] LEFT VENTRICLE The left ventricle is normal size. There is normal left ventricular wall thickness. The left ventricular ejection fraction is within the normal range. The Ejection Fraction is 60-65%. No regional wall motion abnormalities noted.. Transmitral Doppler flow pattern is Grade I-abnormal relaxation pattern. No left ventricle thrombus noted on this study. There is no ventricular septal defect visualized. There is no mass noted in the left ventricle. RIGHT VENTRICLE The right ventricle is normal size. There is normal right ventricular wall thickness. The right ventricular systolic function is normal. ATRIA The left atrium size is normal. The right atrium size is normal. The interatrial septum is intact with no evidence for an atrial septal defect. AORTIC VALVE The aortic valve is normal in structure. Mild sclerosis Mild aortic regurgitation is present. There is no aortic valvular stenosis. MITRAL VALVE The mitral valve is normal in structure. There is no mitral valve stenosis. There is mild mitral valve regurgitation noted. TRICUSPID VALVE The tricuspid valve is normal in structure. There is mild tricuspid valve regurgitation noted. PULMONIC VALVE The pulmonary valve is normal in structure. There is no pulmonic valvular regurgitation. GREAT VESSELS The aortic root is normal in size. The ascending aorta is normal in size. The pulmonary artery is normal. The IVC is normal in size and collapses >50% with inspiration. PERICARDIAL EFFUSION There is no pericardial effusion. <Conclusion> Mild aortic insufficiency Mild mitral insufficiency Mild TR with normal PASP Normal LV systolic function with doppler hemodynamics consistent with abnormal relaxation The Ejection Fraction is 60-65%.
[2017-12-06] MEDS: Docusate-Senna 50 mg-8.6 mg Tab PO SCH ×2 (15:07→17:44)
--- NOTE | 2017-12-06 20:26 | CP.PCM.HP ---
History of Present Illness - History of Present Illness History of Present Illness: CC: Chest pain. 87 y/o M, multiple chronic medical conditions likely CAD with coronary stent, HTN, COPD, CKD walk in ER [facility] on 11/917 to be evaluated for Chest pain, onset 11 AM DOA with no relief. Pt came c/o of Chest pain, midsternal, pressure type, continue, moderate to severe intensity 7:10 associated to dizziness and radiated to back. Worsening symptoms: Difficulty walking. aggravated factor: Standing. Pt denied: fever, chills, n/v/d, abdominal pain, urinary symptoms, headache, syncope, numbness, palpitations, SOB, cough, sick contact, recent travel out of [facility]. EKG: Normal sinus rhythm. CXR: No acute cardiopulmonary disease. Echo: LVEF 60-65%, mild AVR, MR Present on Admission - Present on Admission Any Indicators Present on Admission: No Review of Systems - EENT Eyes: Other (negative) Ears: Decreased Hearing Nose/Mouth/Throat: Nasal Congestion - Cardiovascular Cardiovascular: Chest Pain, Radiating Pain - Respiratory Respiratory: Other (negative) - Gastrointestinal Gastrointestinal: Other (negative) - Genitourinary Genitourinary: Other (negative) - Musculoskeletal Musculoskeletal: Arthralgias, Back Pain - Integumentary Integumentary: Other (negative) - Neurological Neurological: Dizziness - Psychiatric Psychiatric: Anxiety - Endocrine Endocrine: Other (negative) - Hematologic/Lymphatic Hematologic: Other (negative) Past Patient History - Infectious Disease Hx of Infectious Diseases: None - Tetanus Immunizations Tetanus Immunization: Unknown - Past Medical History & Family History Past Medical History?: Yes Pertinent Family History: Unknown - Past Social History Smoking Status: Former Smoker Alcohol: None Drugs: Denies Home Situation {Lives}: With Family - CARDIAC Hx Cardiac Disorders: Yes (CAD with stent) Hx Hypertension: Yes - PULMONARY Hx Respiratory Disorders: Yes Hx Chronic Obstructive Pulmonary Disease (COPD): Yes - NEUROLOGICAL Hx Neurological Disorder: No - HEENT Hx HEENT Problems: Yes (L hard of hearing) - RENAL Hx Chronic Kidney Disease: Yes - ENDOCRINE/METABOLIC Hx Endocrine Disorders: No - HEMATOLOGICAL/ONCOLOGICAL Hx Blood Disorders: Yes (anemia) - INTEGUMENTARY Hx Dermatological Problems: No - MUSCULOSKELETAL/RHEUMATOLOGICAL Hx Musculoskeletal Disorders: Yes (back pain and arthritis) - GASTROINTESTINAL Hx Gastrointestinal Disorders: Yes Hx Gastritis: Yes - GENITOURINARY/GYNECOLOGICAL Hx Genitourinary Disorders: No (bph) - PSYCHIATRIC Hx Psychophysiologic Disorder: Yes (anxiety) - SURGICAL HISTORY Hx Surgeries: Yes Hx Coronary Stent: Yes - ANESTHESIA Hx Anesthesia: Yes Hx Anesthesia Reactions: No Hx Malignant Hyperthermia: No Meds Allergies/Adverse Reactions: Allergies Allergy/AdvReac Type Severity Reaction Status Date / Time Penicillins Allergy RASH Verified 07/26/16 13:50 Physical Exam - Constitutional Appears: No Acute Distress - Head Exam Head Exam: NORMAL INSPECTION - Eye Exam Eye Exam: PERRL - ENT Exam ENT Exam: Mucous Membranes Moist Additional comments: Hard of hearing L side - Neck Exam Neck exam: Positive for: Normal Inspection - Respiratory Exam Respiratory Exam: NORMAL BREATHING PATTERN - Cardiovascular Exam Cardiovascular Exam: REGULAR RHYTHM - GI/Abdominal Exam GI & Abdominal Exam: Normal Bowel Sounds, Soft - Extremities Exam Extremities exam: Positive for: normal inspection - Back Exam Back exam: NORMAL INSPECTION - Neurological Exam Neurological exam: Alert, Oriented x3 Additional comments: No motor/sensory deficit - Psychiatric Exam Psychiatric exam: Anxious - Skin Skin Exam: Warm Results - Vital Signs Recent Vital Signs: Last Vital Signs Temp 97.5 F L 12/05/17 20:39 Pulse 65 12/06/17 20:20 Resp 15 12/06/17 12:03 BP 139/57 L 12/06/17 20:20 Pulse Ox 97 12/06/17 12:03 abbi Holley - Labs Result Diagrams: 12/10/17 08:58 12/10/17 04:20 Labs: Laboratory Results - last 24 hr 12/05/17 12/05/17 12/05/17 21:30 21:30 21:30 WBC 7.4 D RBC 4.71 Hgb 12.7 Hct 38.7 MCV 82.1 MCH 26.9 L MCHC 32.8 L RDW 16.0 H Plt Count 262 MPV 8.7 Neut % (Auto) 46.4 L Lymph % (Auto) 37.8 [place] % (Auto) 9.6 Eos % (Auto) 5.2 H Baso % (Auto) 1.0 Neut # (Auto) 3.4 Lymph # (Auto) 2.8 [place] # (Auto) 0.7 Eos # (Auto) 0.4 Baso # (Auto) 0.1 PT 10.6 INR 1.0 APTT 38.9 H Sodium 137 Potassium 4.7 Chloride 103 Carbon Dioxide 25 Anion Gap 14 BUN 26 H Creatinine 2.2 H Est GFR ( Amer) 35 Est GFR (Non-Af Amer) 29 Random Glucose 99 Calcium 8.9 Total Bilirubin 0.5 AST 26 ALT 23 Alkaline Phosphatase 76 Troponin I 0.0120 NT-Pro-B Natriuret Pep 615 Total Protein 6.9 Albumin 4.0 Globulin 3.0 Albumin/Globulin Ratio 1.3 Triglycerides Cholesterol LDL Cholesterol Direct HDL Cholesterol Thyroxine (T4) TSH 3rd Generation Urine Color Urine Clarity Urine pH Ur Specific [place] Urine Protein Urine Glucose (UA) Urine Ketones Urine Blood Urine Nitrate Urine Bilirubin Urine Urobilinogen Ur Leukocyte Esterase Urine RBC (Auto) Urine Microscopic WBC 12/06/17 12/06/17 12/06/17 09:15 09:15 09:15 WBC 7.1 RBC 5.08 Hgb 13.9 Hct 41.8 MCV 82.3 MCH 27.3 MCHC 33.2 RDW 16.3 H Plt Count 276 MPV 8.9 Neut % (Auto) 53.8 Lymph % (Auto) 32.5 [place] % (Auto) 8.6 Eos % (Auto) 4.3 H Baso % (Auto) 0.8 Neut # (Auto) 3.8 Lymph # (Auto) 2.3 [place] # (Auto) 0.6 Eos # (Auto) 0.3 Baso # (Auto) 0.1 PT INR APTT Sodium 142 Potassium 5.0 Chloride 105 Carbon Dioxide 25 Anion Gap 17 BUN 23 H Creatinine 2.0 H Est GFR ( Amer) 39 Est GFR (Non-Af Amer) 32 Random Glucose 100 Calcium 9.3 Total Bilirubin 0.9 AST 25 ALT 17 L D Alkaline Phosphatase 75 Troponin I 0.0130 NT-Pro-B Natriuret Pep Total Protein 7.5 Albumin 4.3 Globulin 3.3 Albumin/Globulin Ratio 1.3 Triglycerides 168 H Cholesterol 219 H LDL Cholesterol Direct 104 HDL Cholesterol 65 Thyroxine (T4) 7.72 TSH 3rd Generation 3.53 Urine Color Urine Clarity Urine pH Ur Specific [place] Urine Protein Urine Glucose (UA) Urine Ketones Urine Blood Urine Nitrate Urine Bilirubin Urine Urobilinogen Ur Leukocyte Esterase Urine RBC (Auto) Urine Microscopic WBC 12/06/17 12/06/17 09:21 17:08 WBC RBC Hgb Hct MCV MCH MCHC RDW Plt Count MPV Neut % (Auto) Lymph % (Auto) [place] % (Auto) Eos % (Auto) Baso % (Auto) Neut # (Auto) Lymph # (Auto) [place] # (Auto) Eos # (Auto) Baso # (Auto) PT INR APTT Sodium Potassium Chloride Carbon Dioxide Anion Gap BUN Creatinine Est GFR ( Amer) Est GFR (Non-Af Amer) Random Glucose Calcium Total Bilirubin AST ALT Alkaline Phosphatase Troponin I 0.0130 NT-Pro-B Natriuret Pep Total Protein Albumin Globulin Albumin/Globulin Ratio Triglycerides Cholesterol LDL Cholesterol Direct HDL Cholesterol Thyroxine (T4) TSH 3rd Generation Urine Color Straw Urine Clarity Clear Urine pH 7.0 Ur Specific [place] 1.009 Urine Protein 100 Urine Glucose (UA) Neg Urine Ketones Negative Urine Blood Negative Urine Nitrate Negative Urine Bilirubin Negative Urine Urobilinogen 0.2-1.0 Ur Leukocyte Esterase Neg Urine RBC (Auto) 1 Urine Microscopic WBC 1 reviewed J.P. - EKG Data EKG comments: reviewed J.P. - Impressions Impression: Echo: Reviewed J.P. - Imaging and Cardiology Chest x-ray Status: Report reviewed by me ([email or web address]) Assessment & Plan (1) Chest pain Status: Acute Priority: High (2) Presence of stent in coronary artery in patient with coronary artery disease Status: Acute (3) Dyslipidemia Status: Chronic Priority: High (4) Hypertension Status: Chronic Priority: Medium (5) CKD (chronic kidney disease) Status: Acute (6) Benign prostatic hyperplasia Status: Chronic Priority: Low - Assessment and Plan (Free Text) Plan: f/u EKG in AM. Continue NTG, Plavix, Enalapril, Metropolol, Claritin and rest of Tx, PT eval, Cardiology consult. - Date & Time Date: 12/06/17 Time: 20:30
[2017-12-07] MEDS: Nitroglycerin 2% Ointment Foilpak UD TOP SCH ×4 (04:34→21:59)
[2017-12-07 06:41] LABS: HEMOGLOBIN 13.6 g/dL (12.0-18.0); MEAN CELL VOLUME 81.6 fl (80.0-94.0); MEAN CORPUSCULAR HGB CONC 33.1 g/dL (33.0-37.0); RBC 5.06 Mil/uL (4.40-5.90); WHITE BLOOD COUNT 10.1 K/uL (4.8-10.8)
[2017-12-07 06:55] LABS: ALB/GLOB RATIO 1.3 (1.0-2.1); ALBUMIN 3.9 g/dL (3.5-5.0); CALCIUM 9.2 mg/dL (8.4-10.2)
[2017-12-07] MEDS ORDERED: [UNRECOGNIZED DRUG - REMARK] PO SCH (09:00)
[2017-12-07] MEDS: CYANOCOBALAMIN 500 MCG TAB PO SCH (10:04)
[2017-12-07] MEDS: Docusate-Senna 50 mg-8.6 mg Tab PO SCH ×3 (10:04→16:42)
[2017-12-07 10:36] LABS: T4 7.78 ug/dl (5.5-11.0)
--- NOTE | 2017-12-07 19:34 | CP.PCM.PN ---
Subjective - Date & Time of Evaluation Date of Evaluation: 12/07/17 Time of Evaluation: 12:30 - Subjective Subjective: F/U Chest pain. Pt awake, no complaining of chest pain, no SOB. Objective - Vital Signs/Intake and Output Vital Signs (last 24 hours): Temp Pulse Resp BP Pulse Ox 97.5 F L 70 18 119/62 95 12/07/17 16:14 12/07/17 16:42 12/07/17 16:14 12/07/17 16:42 12/07/17 16:14 - Medications Medications: Current Medications Acetaminophen (Tylenol 325mg Tab) 325 mg PO Q6 PRN PRN Reason: Pain, Mild (1-3) Alprazolam (Xanax) 0.25 mg PO Q12 [facility] Stop: 12/14/17 21:01 Clopidogrel Bisulfate (Plavix) 75 mg PO DAILY [facility] Last Admin: 12/07/17 10:04 Dose: 75 mg Cyanocobalamin (Vitamin B12) 500 mcg PO DAILY [facility] Last Admin: 12/07/17 10:04 Dose: 500 mcg Diphenhydramine HCl (Benadryl) 25 mg PO DAILY PRN PRN Reason: Itching / Pruritus Enalapril Maleate (Vasotec) 10 mg PO DAILY [facility] Last Admin: 12/07/17 10:04 Dose: 10 mg Loratadine (Claritin) 10 mg PO DAILY [facility] Last Admin: 12/07/17 10:03 Dose: 10 mg Metoprolol Tartrate (Lopressor) 25 mg PO Q8 [facility] Last Admin: 12/07/17 16:42 Dose: 25 mg Nitroglycerin (Nitro-Bid 2% Oint) 1 ea TOP Q6 [facility] Last Admin: 12/07/17 16:41 Dose: 1 ea Senna/Docusate Sodium (Senokot S 50 Mg-8.6 Mg) 1 tab PO TID [facility] Last Admin: 12/07/17 16:42 Dose: 1 tab - Labs Labs: 12/07/17 05:25 12/07/17 05:25 PT 10.6 Seconds (9.8-13.1) 12/05/17 21:30 INR 1.0 12/05/17 21:30 APTT 38.9 Seconds (25.6-37.1) H 12/05/17 21:30 - Constitutional Appears: No Acute Distress - Head Exam Head Exam: NORMAL INSPECTION - Eye Exam Eye Exam: PERRL - ENT Exam ENT Exam: Mucous Membranes Moist Additional comments: Hard of hearing L side - Neck Exam Neck Exam: Normal Inspection - Respiratory Exam Respiratory Exam: NORMAL BREATHING PATTERN - Cardiovascular Exam Cardiovascular Exam: REGULAR RHYTHM - GI/Abdominal Exam GI & Abdominal Exam: Soft, Normal Bowel Sounds - Extremities Exam Extremities Exam: Normal Inspection - Back Exam Back Exam: NORMAL INSPECTION - Neurological Exam Neurological Exam: Alert, Oriented x3. absent: Motor Sensory Deficit - Psychiatric Exam Psychiatric exam: Anxious - Skin Skin Exam: Warm Assessment and Plan (1) Chest pain Status: Acute (2) Presence of stent in coronary artery in patient with coronary artery disease Status: Acute (3) Dyslipidemia Status: Chronic (4) Hypertension Status: Chronic (5) CKD (chronic kidney disease) Status: Acute (6) Benign prostatic hyperplasia Status: Chronic - Assessment and Plan (Free Text) Plan: Continue Lopressor, Vasotec, NTG prn, Xanax and rest of Tx. Cardiology consult.
--- NOTE | 2017-12-07 19:43 | CP.PCM.CON ---
History of Present Illness - History of Present Illness History of Present Illness: Consultation for evaluation of chest pain HPI: Review of Systems - Review of Systems Systems not reviewed;Unavailable: Acuity of Condition - Constitutional Constitutional: As Per HPI - EENT Eyes: As Per HPI Ears: As Per HPI Nose/Mouth/Throat: As Per HPI - Cardiovascular Cardiovascular: As Per HPI - Respiratory Respiratory: As Per HPI - Gastrointestinal Gastrointestinal: As Per HPI - Genitourinary Genitourinary: As Per HPI - Reproductive: Male Reproductive:Male: As Per HPI - Musculoskeletal Musculoskeletal: As Per HPI - Integumentary Integumentary: As Per HPI - Neurological Neurological: As Per HPI - Psychiatric Psychiatric: As Per HPI - Endocrine Endocrine: As Per HPI - Hematologic/Lymphatic Hematologic: As Per HPI Past Patient History - Infectious Disease Hx of Infectious Diseases: None - Tetanus Immunizations Tetanus Immunization: Unknown - Past Medical History & Family History Past Medical History?: Yes - Past Social History Smoking Status: Former Smoker Alcohol: None Drugs: Denies Home Situation {Lives}: With Family - CARDIAC Hx Cardiac Disorders: Yes (CAD with stent) Hx Hypertension: Yes - PULMONARY Hx Respiratory Disorders: Yes Hx Chronic Obstructive Pulmonary Disease (COPD): Yes - NEUROLOGICAL Hx Neurological Disorder: No - HEENT Hx HEENT Problems: Yes (L hard of hearing) - RENAL Hx Chronic Kidney Disease: Yes - ENDOCRINE/METABOLIC Hx Endocrine Disorders: No - HEMATOLOGICAL/ONCOLOGICAL Hx Blood Disorders: Yes (anemia) - INTEGUMENTARY Hx Dermatological Problems: No - MUSCULOSKELETAL/RHEUMATOLOGICAL Hx Musculoskeletal Disorders: Yes (back pain and arthritis) - GASTROINTESTINAL Hx Gastrointestinal Disorders: Yes Hx Gastritis: Yes - GENITOURINARY/GYNECOLOGICAL Hx Genitourinary Disorders: No (bph) - PSYCHIATRIC Hx Psychophysiologic Disorder: Yes (anxiety) - SURGICAL HISTORY Hx Surgeries: Yes Hx Coronary Stent: Yes - ANESTHESIA Hx Anesthesia: Yes Hx Anesthesia Reactions: No Hx Malignant Hyperthermia: No Meds Allergies/Adverse Reactions: Allergies Allergy/AdvReac Type Severity Reaction Status Date / Time Penicillins Allergy RASH Verified 07/26/16 13:50 - Medications Medications: Current Medications Acetaminophen (Tylenol 325mg Tab) 325 mg PO Q6 PRN PRN Reason: Pain, Mild (1-3) Alprazolam (Xanax) 0.25 mg PO Q12 [facility] Stop: 12/14/17 21:01 Clopidogrel Bisulfate (Plavix) 75 mg PO DAILY [facility] Last Admin: 12/07/17 10:04 Dose: 75 mg Cyanocobalamin (Vitamin B12) 500 mcg PO DAILY [facility] Last Admin: 12/07/17 10:04 Dose: 500 mcg Diphenhydramine HCl (Benadryl) 25 mg PO DAILY PRN PRN Reason: Itching / Pruritus Enalapril Maleate (Vasotec) 10 mg PO DAILY [facility] Last Admin: 12/07/17 10:04 Dose: 10 mg Loratadine (Claritin) 10 mg PO DAILY [facility] Last Admin: 12/07/17 10:03 Dose: 10 mg Metoprolol Tartrate (Lopressor) 25 mg PO Q8 [facility] Last Admin: 12/07/17 16:42 Dose: 25 mg Nitroglycerin (Nitro-Bid 2% Oint) 1 ea TOP Q6 [facility] Last Admin: 12/07/17 16:41 Dose: 1 ea Senna/Docusate Sodium (Senokot S 50 Mg-8.6 Mg) 1 tab PO TID [facility] Last Admin: 12/07/17 16:42 Dose: 1 tab Physical Exam - Constitutional Appears: Well - Head Exam Head Exam: ATRAUMATIC, NORMAL INSPECTION, NORMOCEPHALIC - Eye Exam Eye Exam: EOMI, Normal appearance, PERRL Pupil Exam: NORMAL ACCOMODATION, PERRL - ENT Exam ENT Exam: Mucous Membranes Moist, Normal Exam - Neck Exam Neck exam: Positive for: Normal Inspection - Respiratory Exam Respiratory Exam: Clear to Auscultation Bilateral, NORMAL BREATHING PATTERN - Cardiovascular Exam Cardiovascular Exam: REGULAR RHYTHM - GI/Abdominal Exam GI & Abdominal Exam: Normal Bowel Sounds, Soft. absent: Tenderness - Extremities Exam Extremities exam: Positive for: normal inspection - Back Exam Back exam: NORMAL INSPECTION - Neurological Exam Neurological exam: Alert, CN II-XII Intact, Normal Gait, Oriented x3, Reflexes Normal - Psychiatric Exam Psychiatric exam: Normal Affect, Normal Mood - Skin Skin Exam: Dry, Intact, Normal Color, Warm Results - Vital Signs Recent Vital Signs: Last Vital Signs Temp 97.5 F L 12/07/17 16:14 Pulse 70 12/07/17 16:42 Resp 18 12/07/17 16:14 BP 119/62 12/07/17 16:42 Pulse Ox 95 12/07/17 16:14 - Labs Result Diagrams: 12/07/17 05:25 12/07/17 05:25 Labs: Laboratory Results - last 24 hr 12/07/17 12/07/17 05:25 05:25 WBC 10.1 RBC 5.06 Hgb 13.6 Hct 41.3 MCV 81.6 MCH 27.0 MCHC 33.1 RDW 16.0 H Plt Count 281 Sodium 136 Potassium 4.5 Chloride 106 Carbon Dioxide 22 Anion Gap 13 BUN 28 H Creatinine 2.1 H Est GFR ( Amer) 36 Est GFR (Non-Af Amer) 30 Random Glucose 99 Calcium 9.2 Phosphorus 3.8 Magnesium 1.9 Total Bilirubin 0.8 AST 21 ALT 15 L Alkaline Phosphatase 75 Total Protein 7.1 Albumin 3.9 Globulin 3.1 Albumin/Globulin Ratio 1.3 Triglycerides 180 H Cholesterol 207 H LDL Cholesterol Direct 92 HDL Cholesterol 59 Thyroxine (T4) 7.78 TSH 3rd Generation 2.78 Assessment & Plan (1) Chest pain Assessment and Plan: acs ruled ou diagnostic cardiac catheterization done in 08/14 at plan for FFR guided PCI saturday at [facility] Status: Acute Priority: High (2) Dyslipidemia Status: Chronic Priority: High (3) Dehydration Status: Acute (4) CAD (coronary artery disease), [place] coronary artery Status: Chronic (5) CKD (chronic kidney disease) stage 4, GFR 15-29 ml/min Status: Chronic
[2017-12-08] MEDS: Nitroglycerin 2% Ointment Foilpak UD TOP SCH ×4 (04:57→21:34)
[2017-12-08] MEDS: CYANOCOBALAMIN 500 MCG TAB PO SCH (10:22)
[2017-12-08] MEDS: Docusate-Senna 50 mg-8.6 mg Tab PO SCH ×3 (10:22→17:13)
--- NOTE | 2017-12-08 13:40 | CP.PCM.PN ---
Subjective - Date & Time of Evaluation Date of Evaluation: 12/08/17 Time of Evaluation: 14:20 - Subjective Subjective: F/U CP no C/P, no SOB Objective - Vital Signs/Intake and Output Vital Signs (last 24 hours): Temp Pulse Resp BP Pulse Ox 97.6 F 61 18 129/75 99 12/08/17 12:35 12/08/17 12:35 12/08/17 12:35 12/08/17 12:35 12/08/17 12:35 - Medications Medications: Current Medications Acetaminophen (Tylenol 325mg Tab) 325 mg PO Q6 PRN PRN Reason: Pain, Mild (1-3) Alprazolam (Xanax) 0.25 mg PO Q12 [facility] Stop: 12/14/17 21:01 Last Admin: 12/08/17 10:29 Dose: 0.25 mg Clopidogrel Bisulfate (Plavix) 75 mg PO DAILY [facility] Last Admin: 12/08/17 10:22 Dose: 75 mg Cyanocobalamin (Vitamin B12) 500 mcg PO DAILY [facility] Last Admin: 12/08/17 10:22 Dose: 500 mcg Diphenhydramine HCl (Benadryl) 25 mg PO DAILY PRN PRN Reason: Itching / Pruritus Enalapril Maleate (Vasotec) 10 mg PO DAILY [facility] Last Admin: 12/08/17 10:22 Dose: 10 mg Famotidine (Pepcid) 20 mg PO BID [facility] Last Admin: 12/08/17 10:28 Dose: 20 mg Loratadine (Claritin) 10 mg PO DAILY [facility] Last Admin: 12/08/17 10:22 Dose: 10 mg Metoprolol Tartrate (Lopressor) 25 mg PO Q8 [facility] Last Admin: 12/08/17 10:22 Dose: 25 mg Nitroglycerin (Nitro-Bid 2% Oint) 1 ea TOP Q6 [facility] Last Admin: 12/08/17 10:28 Dose: 1 ea Senna/Docusate Sodium (Senokot S 50 Mg-8.6 Mg) 1 tab PO TID [facility] Last Admin: 12/08/17 13:22 Dose: 1 tab - Labs Labs: 12/07/17 05:25 12/07/17 05:25 PT 10.6 Seconds (9.8-13.1) 12/05/17 21:30 INR 1.0 12/05/17 21:30 APTT 38.9 Seconds (25.6-37.1) H 12/05/17 21:30 - Constitutional Appears: No Acute Distress - Head Exam Head Exam: NORMAL INSPECTION - Eye Exam Eye Exam: PERRL - ENT Exam ENT Exam: Mucous Membranes Moist Additional comments: Hard of hearing on L - Neck Exam Neck Exam: Normal Inspection - Respiratory Exam Respiratory Exam: NORMAL BREATHING PATTERN - Cardiovascular Exam Cardiovascular Exam: REGULAR RHYTHM - GI/Abdominal Exam GI & Abdominal Exam: Soft, Normal Bowel Sounds - Extremities Exam Extremities Exam: Normal Inspection - Back Exam Back Exam: NORMAL INSPECTION - Neurological Exam Neurological Exam: Alert, Oriented x3. absent: Motor Sensory Deficit - Psychiatric Exam Psychiatric exam: Anxious - Skin Skin Exam: Warm Assessment and Plan (1) Presence of stent in coronary artery in patient with coronary artery disease Status: Acute (2) Chest pain Status: Acute (3) Dyslipidemia Status: Chronic (4) Hypertension Status: Chronic (5) CKD (chronic kidney disease) Status: Acute (6) Benign prostatic hyperplasia Status: Chronic - Assessment and Plan (Free Text) Plan: for Cardiac Cath [facility], continue NTG, Lopressor , Plavix and rest of treatment
[2017-12-09] MEDS: Dextrose 5%/0.45% NS 1,000 ML IV SCH ×2 (00:26→09:00)
[2017-12-09] MEDS: Nitroglycerin 2% Ointment Foilpak UD TOP SCH ×4 (04:29→21:56)
[2017-12-09] MEDS: Docusate-Senna 50 mg-8.6 mg Tab PO SCH ×3 (09:00→16:41)
[2017-12-09] MEDS: CYANOCOBALAMIN 500 MCG TAB PO SCH (09:00)
--- NOTE | 2017-12-09 14:25 | CP.PCM.PN ---
Objective - Vital Signs/Intake and Output Vital Signs (last 24 hours): Temp Pulse Resp BP Pulse Ox 97.3 F L 62 18 132/66 97 12/09/17 05:06 12/09/17 05:06 12/09/17 05:06 12/09/17 05:06 12/09/17 05:06 - Medications Medications: Current Medications Acetaminophen (Tylenol 325mg Tab) 325 mg PO Q6 PRN PRN Reason: Pain, Mild (1-3) Alprazolam (Xanax) 0.25 mg PO Q12 [facility] Stop: 12/14/17 21:01 Last Admin: 12/08/17 21:34 Dose: 0.25 mg Clopidogrel Bisulfate (Plavix) 75 mg PO DAILY [facility] Last Admin: 12/08/17 10:22 Dose: 75 mg Cyanocobalamin (Vitamin B12) 500 mcg PO DAILY [facility] Last Admin: 12/08/17 10:22 Dose: 500 mcg Diphenhydramine HCl (Benadryl) 25 mg PO DAILY PRN PRN Reason: Itching / Pruritus Enalapril Maleate (Vasotec) 10 mg PO DAILY [facility] Last Admin: 12/08/17 10:22 Dose: 10 mg Famotidine (Pepcid) 20 mg PO BID [facility] Last Admin: 12/08/17 17:12 Dose: 20 mg Dextrose/Sodium Chloride (Dextrose 5%/0.45% Ns 1000 Ml) 1,000 mls @ 70 mls/hr IV .[id number] [facility] Stop: 12/09/17 23:06 Last Admin: 12/09/17 00:26 Dose: 70 mls/hr Loratadine (Claritin) 10 mg PO DAILY [facility] Last Admin: 12/08/17 10:22 Dose: 10 mg Metoprolol Tartrate (Lopressor) 25 mg PO Q8 [facility] Last Admin: 12/09/17 01:07 Dose: 25 mg Nitroglycerin (Nitro-Bid 2% Oint) 1 ea TOP Q6 [facility] Last Admin: 12/09/17 04:29 Dose: 1 ea Senna/Docusate Sodium (Senokot S 50 Mg-8.6 Mg) 1 tab PO TID [facility] Last Admin: 12/08/17 17:13 Dose: 1 tab - Labs Labs: 12/07/17 05:25 12/07/17 05:25 PT 10.6 Seconds (9.8-13.1) 12/05/17 21:30 INR 1.0 12/05/17 21:30 APTT 38.9 Seconds (25.6-37.1) H 12/05/17 21:30 Assessment and Plan (1) Chest pain Status: Acute (2) Dyslipidemia Status: Chronic (3) Dehydration Status: Acute (4) CAD (coronary artery disease), [place] coronary artery Status: Chronic (5) CKD (chronic kidney disease) stage 4, GFR 15-29 ml/min Status: Chronic
--- NOTE | 2017-12-09 20:13 | CP.PCM.PN ---
Subjective - Date & Time of Evaluation Date of Evaluation: 12/09/17 Time of Evaluation: 18:00 - Subjective Subjective: F/U Chest pain. Patient returned from Cardiac Cath [facility] , no AD, no C/P Objective - Vital Signs/Intake and Output Vital Signs (last 24 hours): Temp Pulse Resp BP Pulse Ox 98.1 F 75 20 148/79 97 12/09/17 19:23 12/09/17 19:23 12/09/17 19:23 12/09/17 19:23 12/09/17 19:23 - Medications Medications: Current Medications Acetaminophen (Tylenol 325mg Tab) 325 mg PO Q6 PRN PRN Reason: Pain, Mild (1-3) Alprazolam (Xanax) 0.25 mg PO Q12 [facility] Stop: 12/14/17 21:01 Last Admin: 12/09/17 09:00 Dose: Not Given Clopidogrel Bisulfate (Plavix) 75 mg PO DAILY [facility] Last Admin: 12/09/17 09:00 Dose: Not Given Cyanocobalamin (Vitamin B12) 500 mcg PO DAILY [facility] Last Admin: 12/09/17 09:00 Dose: Not Given Diphenhydramine HCl (Benadryl) 25 mg PO DAILY PRN PRN Reason: Itching / Pruritus Enalapril Maleate (Vasotec) 10 mg PO DAILY [facility] Last Admin: 12/09/17 09:00 Dose: Not Given Famotidine (Pepcid) 20 mg PO BID [facility] Last Admin: 12/09/17 16:41 Dose: 20 mg Dextrose/Sodium Chloride (Dextrose 5%/0.45% Ns 1000 Ml) 1,000 mls @ 70 mls/hr IV .[id number] [facility] Stop: 12/09/17 23:06 Last Admin: 12/09/17 09:00 Dose: Not Given Loratadine (Claritin) 10 mg PO DAILY [facility] Last Admin: 12/09/17 16:19 Dose: Not Given Metoprolol Tartrate (Lopressor) 25 mg PO Q8 [facility] Last Admin: 12/09/17 16:41 Dose: 25 mg Nitroglycerin (Nitro-Bid 2% Oint) 1 ea TOP Q6 [facility] Last Admin: 12/09/17 16:47 Dose: 1 ea Senna/Docusate Sodium (Senokot S 50 Mg-8.6 Mg) 1 tab PO TID [facility] Last Admin: 12/09/17 16:41 Dose: 1 tab - Labs Labs: 12/07/17 05:25 12/07/17 05:25 PT 10.6 Seconds (9.8-13.1) 12/05/17 21:30 INR 1.0 12/05/17 21:30 APTT 38.9 Seconds (25.6-37.1) H 12/05/17 21:30 - Constitutional Appears: No Acute Distress - Head Exam Head Exam: NORMAL INSPECTION - Eye Exam Eye Exam: PERRL - ENT Exam ENT Exam: Mucous Membranes Moist Additional comments: Hard of hearing L side - Neck Exam Neck Exam: Normal Inspection - Respiratory Exam Respiratory Exam: NORMAL BREATHING PATTERN - Cardiovascular Exam Cardiovascular Exam: REGULAR RHYTHM - GI/Abdominal Exam GI & Abdominal Exam: Soft, Normal Bowel Sounds - Extremities Exam Extremities Exam: Normal Inspection - Back Exam Back Exam: NORMAL INSPECTION - Neurological Exam Neurological Exam: Alert, Oriented x3. absent: Motor Sensory Deficit - Psychiatric Exam Psychiatric exam: Anxious - Skin Skin Exam: Warm Assessment and Plan (1) CAD (coronary artery disease) Status: Acute (2) Chest pain Status: Acute (3) Dyslipidemia Status: Chronic (4) Hypertension Status: Chronic (5) CKD (chronic kidney disease) Status: Acute (6) Benign prostatic hyperplasia Status: Chronic - Assessment and Plan (Free Text) Plan: continue Lopressor, NTG , Plavix and rest of treatment, Cardiology f/u
[2017-12-10] MEDS: Nitroglycerin 2% Ointment Foilpak UD TOP SCH ×4 (05:15→21:25)
[2017-12-10 07:05] LABS: ALB/GLOB RATIO 1.2 (1.0-2.1); ALBUMIN 3.7 g/dL (3.5-5.0); CALCIUM 8.9 mg/dL (8.4-10.2)
[2017-12-10 09:05] LABS: HEMOGLOBIN 12.6 g/dL (12.0-18.0); MEAN CELL VOLUME 83.3 fl (80.0-94.0); MEAN CORPUSCULAR HEMOGLOBIN 27.1 pg (27.0-31.0); MEAN CORPUSCULAR HGB CONC 32.6 g/dL (33.0-37.0); RBC 4.63 Mil/uL (4.40-5.90); RED CELL DISTRIBUTION WIDTH 15.7 % (11.5-14.5)
[2017-12-10] MEDS: Docusate-Senna 50 mg-8.6 mg Tab PO SCH ×3 (09:37→17:11)
[2017-12-10] MEDS: Dextrose 5%/0.45% NS 1,000 ML IV SCH (09:38)
[2017-12-10] MEDS: CYANOCOBALAMIN 500 MCG TAB PO SCH (09:44)
[2017-12-10 10:20] LABS: CALCIUM 8.9 mg/dL (8.4-10.2)
[2017-12-10 10:34] LABS: TROPONIN I 0.233 ng/mL (0.00-0.120)
--- NOTE | 2017-12-10 12:02 | CARD ---
APPROVED REPORT Date of service: 12/10/2017 EKG Measurement Heart [id number] <Conclusion> Normal sinus rhythm Minimal voltage criteria for LVH, may be normal variant Nonspecific STTT wave abnormality Prolonged QT Abnormal ECG
--- NOTE | 2017-12-10 16:52 | CP.PCM.PN ---
Subjective - Date & Time of Evaluation Date of Evaluation: 12/10/17 Time of Evaluation: 12:10 - Subjective Subjective: F/U Chest pain. nose congestion, sneezing, no C/P, no cough , no SOB, R groin no pain Objective - Vital Signs/Intake and Output Vital Signs (last 24 hours): Temp Pulse Resp BP Pulse Ox 98.1 F 83 20 161/73 H 100 12/10/17 15:39 12/10/17 15:39 12/10/17 15:39 12/10/17 15:39 12/10/17 15:39 - Medications Medications: Current Medications Acetaminophen (Tylenol 325mg Tab) 325 mg PO Q6 PRN PRN Reason: Pain, Mild (1-3) Alprazolam (Xanax) 0.25 mg PO Q12 [facility] Stop: 12/14/17 21:01 Last Admin: 12/10/17 09:44 Dose: 0.25 mg Clopidogrel Bisulfate (Plavix) 75 mg PO DAILY [facility] Last Admin: 12/10/17 09:37 Dose: 75 mg Cyanocobalamin (Vitamin B12) 500 mcg PO DAILY [facility] Last Admin: 12/10/17 09:44 Dose: 500 mcg Diphenhydramine HCl (Benadryl) 25 mg PO DAILY PRN PRN Reason: Itching / Pruritus Enalapril Maleate (Vasotec) 10 mg PO DAILY [facility] Last Admin: 12/10/17 09:37 Dose: 10 mg Famotidine (Pepcid) 20 mg PO BID [facility] Last Admin: 12/10/17 09:37 Dose: 20 mg Fluticasone Propionate (Flonase) 1 spr SANIA BID [facility] Dextrose/Sodium Chloride (Dextrose 5%/0.45% Ns 1000 Ml) 1,000 mls @ 70 mls/hr IV .[id number] [facility] Stop: 12/11/17 08:54 Last Admin: 12/10/17 09:38 Dose: 70 mls/hr Loratadine (Claritin) 10 mg PO DAILY [facility] Last Admin: 12/10/17 09:38 Dose: 10 mg Metoprolol Tartrate (Lopressor) 25 mg PO Q8 [facility] Last Admin: 12/10/17 09:36 Dose: 25 mg Nitroglycerin (Nitro-Bid 2% Oint) 1 ea TOP Q6 [facility] Last Admin: 12/10/17 09:37 Dose: 1 ea Senna/Docusate Sodium (Senokot S 50 Mg-8.6 Mg) 1 tab PO TID [facility] Last Admin: 12/10/17 12:57 Dose: 1 tab - Labs Labs: 12/10/17 08:58 12/10/17 09:51 PT 10.6 Seconds (9.8-13.1) 12/05/17 21:30 INR 1.0 12/05/17 21:30 APTT 38.9 Seconds (25.6-37.1) H 12/05/17 21:30 - Constitutional Appears: No Acute Distress - Head Exam Head Exam: NORMAL INSPECTION - Eye Exam Eye Exam: PERRL - ENT Exam Additional comments: nose congested watery, throat mild redness, Hard of hearing on L - Neck Exam Neck Exam: Normal Inspection - Respiratory Exam Respiratory Exam: NORMAL BREATHING PATTERN - Cardiovascular Exam Cardiovascular Exam: REGULAR RHYTHM - GI/Abdominal Exam GI & Abdominal Exam: Soft, Normal Bowel Sounds - Extremities Exam Extremities Exam: Normal Inspection - Back Exam Back Exam: NORMAL INSPECTION - Neurological Exam Neurological Exam: Alert, Oriented x3. absent: Motor Sensory Deficit - Psychiatric Exam Psychiatric exam: Anxious - Skin Skin Exam: Warm Assessment and Plan (1) CAD (coronary artery disease) Status: Acute (2) Chest pain Status: Acute (3) Dyslipidemia Status: Chronic (4) Hypertension Status: Chronic (5) CKD (chronic kidney disease) Status: Acute (6) Benign prostatic hyperplasia Status: Chronic (7) URI (upper respiratory infection) Status: Acute - Assessment and Plan (Free Text) Plan: Claritin, Flosase, nasal Flu AB, continue Lopressor, NitroBid, Plavix, Enalapril, run of SVT earler, EKG no acute changes, RSR, LVH, NSSTT, PQT, f/u Troponins, Cardiology f/u
--- NOTE | 2017-12-10 17:37 | CP.PCM.PN ---
Subjective - Date & Time of Evaluation Date of Evaluation: 12/10/17 Time of Evaluation: 17:36 - Subjective Subjective: s/p PTCA/OLIVERIO of proximal LAD Objective - Vital Signs/Intake and Output Vital Signs (last 24 hours): Temp Pulse Resp BP Pulse Ox 98.1 F 83 20 161/73 H 100 12/10/17 15:39 12/10/17 17:10 12/10/17 15:39 12/10/17 17:10 12/10/17 15:39 - Medications Medications: Current Medications Acetaminophen (Tylenol 325mg Tab) 325 mg PO Q6 PRN PRN Reason: Pain, Mild (1-3) Alprazolam (Xanax) 0.25 mg PO Q12 [facility] Stop: 12/14/17 21:01 Last Admin: 12/10/17 09:44 Dose: 0.25 mg Clopidogrel Bisulfate (Plavix) 75 mg PO DAILY [facility] Last Admin: 12/10/17 09:37 Dose: 75 mg Cyanocobalamin (Vitamin B12) 500 mcg PO DAILY [facility] Last Admin: 12/10/17 09:44 Dose: 500 mcg Diphenhydramine HCl (Benadryl) 25 mg PO DAILY PRN PRN Reason: Itching / Pruritus Enalapril Maleate (Vasotec) 10 mg PO DAILY [facility] Last Admin: 12/10/17 09:37 Dose: 10 mg Famotidine (Pepcid) 20 mg PO BID [facility] Last Admin: 12/10/17 17:11 Dose: 20 mg Fluticasone Propionate (Flonase) 1 spr SANIA BID [facility] Last Admin: 12/10/17 17:08 Dose: 1 spr Dextrose/Sodium Chloride (Dextrose 5%/0.45% Ns 1000 Ml) 1,000 mls @ 70 mls/hr IV .[id number] [facility] Stop: 12/11/17 08:54 Last Admin: 12/10/17 09:38 Dose: 70 mls/hr Loratadine (Claritin) 10 mg PO DAILY [facility] Last Admin: 12/10/17 09:38 Dose: 10 mg Metoprolol Tartrate (Lopressor) 25 mg PO Q8 [facility] Last Admin: 12/10/17 17:10 Dose: 25 mg Nitroglycerin (Nitro-Bid 2% Oint) 1 ea TOP Q6 [facility] Last Admin: 12/10/17 17:07 Dose: 1 ea Senna/Docusate Sodium (Senokot S 50 Mg-8.6 Mg) 1 tab PO TID [facility] Last Admin: 12/10/17 17:11 Dose: 1 tab - Labs Labs: 12/10/17 08:58 12/10/17 09:51 PT 10.6 Seconds (9.8-13.1) 12/05/17 21:30 INR 1.0 12/05/17 21:30 APTT 38.9 Seconds (25.6-37.1) H 12/05/17 21:30 - Constitutional Appears: Well - Head Exam Head Exam: ATRAUMATIC, NORMAL INSPECTION, NORMOCEPHALIC - Eye Exam Eye Exam: EOMI, Normal appearance, PERRL Pupil Exam: NORMAL ACCOMODATION, PERRL - ENT Exam ENT Exam: Mucous Membranes Moist, Normal Exam - Neck Exam Neck Exam: Full ROM, Normal Inspection. absent: Lymphadenopathy - Respiratory Exam Respiratory Exam: Clear to Ausculation Bilateral, NORMAL BREATHING PATTERN - Cardiovascular Exam Cardiovascular Exam: REGULAR RHYTHM, +S1, +S2. absent: Murmur - GI/Abdominal Exam GI & Abdominal Exam: Soft, Normal Bowel Sounds. absent: Tenderness - Extremities Exam Extremities Exam: Full ROM, Normal Capillary Refill, Normal Inspection. absent : Joint Swelling, Pedal Edema - Back Exam Back Exam: NORMAL INSPECTION - Neurological Exam Neurological Exam: Alert, Awake, CN II-XII Intact, Normal Gait, Oriented x3 - Psychiatric Exam Psychiatric exam: Normal Affect, Normal Mood - Skin Skin Exam: Dry, Intact, Normal Color, Warm Assessment and Plan (1) Chest pain Assessment & Plan: s/p PTCA/OLIVERIO of proximal LAD cont DAPT cont GDMT for CAD Status: Acute (2) Dyslipidemia Status: Chronic (3) Dehydration Status: Acute (4) CAD (coronary artery disease), [place] coronary artery Status: Chronic (5) CKD (chronic kidney disease) stage 4, GFR 15-29 ml/min Status: Chronic
[2017-12-10 23:58] VITALS: RESP 18
[2017-12-11] MEDS: Dextrose 5%/0.45% NS 1,000 ML IV SCH (00:26)
[2017-12-11] MEDS: Nitroglycerin 2% Ointment Foilpak UD TOP SCH ×2 (05:00→10:11)
[2017-12-11] MEDS: Docusate-Senna 50 mg-8.6 mg Tab PO SCH (10:10)
[2017-12-11] MEDS: CYANOCOBALAMIN 500 MCG TAB PO SCH (10:11)
[2017-12-11 12:22] VITALS: BP 123/77; PULSE 80; TEMP 98.4; O2SAT 97
--- NOTE | 2017-12-11 16:26 | CP.PCM.DIS ---
Provider - Provider Date of Admission: 12/08/17 08:59 Attending physician: Isaiah Persaud MD Time Spent in preparation of Discharge (in minutes): 35 Diagnosis - Discharge Diagnosis (1) CAD (coronary artery disease) Status: Acute (2) Chest pain Status: Acute Priority: High (3) Dyslipidemia Status: Chronic Priority: High (4) Hypertension Status: Chronic Priority: Medium (5) CKD (chronic kidney disease) Status: Acute (6) Benign prostatic hyperplasia Status: Chronic Priority: Low (7) URI (upper respiratory infection) Status: Acute Hospital Course - Lab Results Lab Results: Micro Results 12/07/17 17:28 Urine Urine Culture - Final No Growth (<1,000 CFU/ML) Most Recent Lab Values WBC 10.0 K/uL (4.8-10.8) 12/10/17 08:58 RBC 4.63 Mil/uL (4.40-5.90) 12/10/17 08:58 Hgb 12.6 g/dL (12.0-18.0) 12/10/17 08:58 Hct 38.6 % (35.0-51.0) 12/10/17 08:58 MCV 83.3 fl (80.0-94.0) 12/10/17 08:58 MCH 27.1 pg (27.0-31.0) 12/10/17 08:58 MCHC 32.6 g/dL (33.0-37.0) L 12/10/17 08:58 RDW 15.7 % (11.5-14.5) H 12/10/17 08:58 Plt Count 251 K/uL (130-400) 12/10/17 08:58 MPV 8.9 fl (7.2-11.7) 12/06/17 09:15 Neut % (Auto) 53.8 % (50.0-75.0) 12/06/17 09:15 Lymph % (Auto) 32.5 % (20.0-40.0) 12/06/17 09:15 [place] % (Auto) 8.6 % (0.0-10.0) 12/06/17 09:15 Eos % (Auto) 4.3 % (0.0-4.0) H 12/06/17 09:15 Baso % (Auto) 0.8 % (0.0-2.0) 12/06/17 09:15 Neut # (Auto) 3.8 K/uL (1.8-7.0) 12/06/17 09:15 Lymph # (Auto) 2.3 K/uL (1.0-4.3) 12/06/17 09:15 [place] # (Auto) 0.6 K/uL (0.0-0.8) 12/06/17 09:15 Eos # (Auto) 0.3 K/uL (0.0-0.7) 12/06/17 09:15 Baso # (Auto) 0.1 K/uL (0.0-0.2) 12/06/17 09:15 PT 10.6 Seconds (9.8-13.1) 12/05/17 21:30 INR 1.0 12/05/17 21:30 APTT 38.9 Seconds (25.6-37.1) H 12/05/17 21:30 Sodium 137 mmol/l (132-148) 12/10/17 09:51 Potassium 4.8 MMOL/L (3.6-5.0) 12/10/17 09:51 Chloride 106 mmol/L (98-107) 12/10/17 09:51 Carbon Dioxide 20 mmol/L (22-30) L 12/10/17 09:51 Anion Gap 16 (10-20) 12/10/17 09:51 BUN 26 mg/dl (9-20) H 12/10/17 09:51 Creatinine 2.1 mg/dl (0.8-1.5) H 12/10/17 09:51 Est GFR ( Amer) 36 12/10/17 09:51 Est GFR (Non-Af Amer) 30 12/10/17 09:51 Random Glucose 189 mg/dL (75-110) H 12/10/17 09:51 Calcium 8.9 mg/dL (8.4-10.2) 12/10/17 09:51 Phosphorus 3.8 mg/dl (2.5-4.5) 12/07/17 05:25 Magnesium 1.9 MG/DL (1.6-2.3) 12/07/17 05:25 Total Bilirubin 0.4 mg/dl (0.2-1.3) 12/10/17 04:20 AST 21 U/L (17-59) 12/10/17 04:20 ALT 28 U/L (21-72) 12/10/17 04:20 Alkaline Phosphatase 77 U/L (38-126) 12/10/17 04:20 Troponin I 0.1710 ng/mL (0.00-0.120) H* 12/11/17 00:25 NT-Pro-B Natriuret Pep 615 pg/ml (0-900) 12/05/17 21:30 Total Protein 6.7 G/DL (6.3-8.2) 12/10/17 04:20 Albumin 3.7 g/dL (3.5-5.0) 12/10/17 04:20 Globulin 3.0 gm/dL (2.2-3.9) 12/10/17 04:20 Albumin/Globulin Ratio 1.2 (1.0-2.1) 12/10/17 04:20 Triglycerides 180 mg/DL (0-149) H 12/07/17 05:25 Cholesterol 207 mg/dL (0-199) H 12/07/17 05:25 LDL Cholesterol Direct 92 mg/dL (0-129) 12/07/17 05:25 HDL Cholesterol 59 MG/DL (30-70) 12/07/17 05:25 Thyroxine (T4) 7.78 ug/dl (5.5-11.0) 12/07/17 05:25 TSH 3rd Generation 2.78 mIU/ML (0.46-4.68) 12/07/17 05:25 Urine Color Straw (YELLOW) 12/06/17 09:21 Urine Clarity Clear (Clear) 12/06/17 09:21 Urine pH 7.0 (5.0-8.0) 12/06/17 09:21 Ur Specific [place] 1.009 (1.003-1.030) 12/06/17 09:21 Urine Protein 100 mg/dL (NEGATIVE) 12/06/17 09:21 Urine Glucose (UA) Neg mg/dL (Normal) 12/06/17 09:21 Urine Ketones Negative mg/dL (NEGATIVE) 12/06/17 09:21 Urine Blood Negative (NEGATIVE) 12/06/17 09:21 Urine Nitrate Negative (NEGATIVE) 12/06/17 09:21 Urine Bilirubin Negative (NEGATIVE) 12/06/17 09:21 Urine Urobilinogen 0.2-1.0 mg/dL (0.2-1.0) 12/06/17 09:21 Ur Leukocyte Esterase Neg Dimitri/uL (Negative) 12/06/17 09:21 Urine RBC (Auto) 1 /hpf (0-3) 12/06/17 09:21 Urine Microscopic WBC 1 /hpf (0-5) 12/06/17 09:21 Influenza Typ A,B (EIA) Negative for flu a/b (NEGATIVE) 12/10/17 16:07 - Date & Time of H&P Date of H&P: 12/06/17 Time of H&P: 20:30 Discharge Exam - Head Exam Head Exam: NORMAL INSPECTION - Eye Exam Eye Exam: PERRL - ENT Exam Additional comments: Nose congested watery, throat wild redness, hard of hearing on left - Neck Exam Neck exam: Normal Inspection - Respiratory Exam Respiratory Exam: NORMAL BREATHING PATTERN - Cardiovascular Exam Cardiovascular Exam: REGULAR RHYTHM - GI/Abdominal Exam GI & Abdominal Exam: Normal Bowel Sounds, Soft - Extremities Exam Extremities exam: normal inspection - Back Exam Back exam: NORMAL INSPECTION - Neurological Exam Neurological exam: Alert, Oriented x3 Additional comments: No motor sensory deficit. - Psychiatric Exam Psychiatric exam: Anxious - Skin Skin Exam: Warm Discharge Plan - Discharge Medications Prescriptions: Aspirin 81 mg PO DAILY #30 tab.chew Metoprolol Tartrate [Lopressor] 25 mg PO Q8 #30 tab Clopidogrel [Plavix] 75 mg PO DAILY #30 tab Enalapril Maleate [Vasotec] 10 mg PO DAILY #30 tab - Follow Up Plan Condition: FAIR Disposition: HOME/ ROUTINE Patient education suggested?: Yes Instructions: Chest Pain (DC), Coronary Heart Disease (DC) Additional Instructions: follow up with in 1 week follow up with in 1 week Referrals: Rylan Moreno MD [Staff Provider] - Isaiah Persaud MD [Staff Provider] -
--- NOTE | 2017-12-18 12:12 | PQF ---
PROVIDER RESPONSE TEXT: Unstable Angina REVIEWER QUERY TEXT: Angina Type Angina is documented in the Medical Record. If you agree please specify the type Such as: -- Unstable angina -- Angina pectoris with documented spasm -- Angina equivalent -- Angina of effort -- Post infarction angina -- Other, please specify The patient's Clinical Indicators include: 12/[address] Moreno documented " Pt brought to laboratory chief for further evaluation and treatme nt of unstable angina." Query created by: Berenice Austin on 12/13/2017 9:13 AM Electronically signed by: Isaiah Persaud MD 12/18/2017 12:10 PM
== END 2017-12-11 14:04 | disposition home or self-care (01) | DRG 247 ==
LOC: EDBD 20:25 → H.ER 20:25 → H.ERHOLD 12-06 00:02 → H.TEL 12-06 21:16 → OBSVTOIN 12-08 08:59
PROVIDERS: ADMIT Internal Medicine Pulmonary Disease; ATTEND Internal Medicine Pulmonary Disease
PROC: 4A023N7 Measurement of Cardiac Sampling and Pressure, Left Heart, Percutaneous Approach (ICD-10-PCS; principal; 2017-12-09)
PROC: 027034Z Dilation of Coronary Artery, One Artery with Drug-eluting Intraluminal Device, Percutaneous Approach (ICD-10-PCS; 2017-12-09)
PROC: B216YZZ Fluoroscopy of Right and Left Heart using Other Contrast (ICD-10-PCS; 2017-12-09)
DX: I25.110 Atherosclerotic heart disease of native coronary artery with unstable angina pectoris (principal); N18.4 Chronic kidney disease, stage 4 (severe); H91.92 Unspecified hearing loss, left ear; E78.00 Pure hypercholesterolemia, unspecified; E78.5 Hyperlipidemia, unspecified; E86.0 Dehydration; I12.9 Hypertensive chronic kidney disease with stage 1 through stage 4 chronic kidney disease, or unspecified chronic kidney disease; N40.0 Benign prostatic hyperplasia without lower urinary tract symptoms; Z87.891 Personal history of nicotine dependence; Z95.5 Presence of coronary angioplasty implant and graft; J44.9 Chronic obstructive pulmonary disease, unspecified; Z88.0 Allergy status to penicillin; K29.70 Gastritis, unspecified, without bleeding; M19.90 Unspecified osteoarthritis, unspecified site; F41.9 Anxiety disorder, unspecified; J06.9 Acute upper respiratory infection, unspecified

== ENCOUNTER 2018-06-11 12:02 | Emergency (ER) | payer OTHER ==
[2018-06-11 12:02] VITALS: BMI 23.3
[2018-06-11 12:24] VITALS: BP 127/78; PULSE 73; RESP 16; TEMP 97.3; O2SAT 97
[2018-06-11] MEDS ORDERED: Sodium Chloride 0.9% 1,000 ML IV ONE ×2 (12:54→15:24)
[2018-06-11] MEDS ORDERED: Magnesium Citrate Oral SOL (300 ml) PO ONE (13:13)
[2018-06-11 13:21] LABS: BASO # 0.1 K/uL (0.0-0.2); BASO % 0.7 % (0.0-2.0); EOS # 0.4 K/uL (0.0-0.7); EOS % 5.3 % (0.0-4.0); HEMOGLOBIN 12.7 g/dL (12.0-18.0); LYMPH # 2.4 K/uL (1.0-4.3); MEAN CORPUSCULAR HEMOGLOBIN 26.3 pg (27.0-31.0); MEAN CORPUSCULAR HGB CONC 32.8 g/dL (33.0-37.0); MEAN PLATELET VOLUME 8.7 fl (7.2-11.7); MONO # 0.7 K/uL (0.0-0.8); NEUT # 4.4 K/uL (1.8-7.0); NRBC % 0.3 % (0.0-0.0); RBC 4.83 Mil/uL (4.40-5.90); RED CELL DISTRIBUTION WIDTH 16.3 % (11.5-14.5)
[2018-06-11 13:23] LABS: MEAN CELL VOLUME 80.1 fl (80.0-94.0)
[2018-06-11 13:24] LABS: SQUAMOUS EPITHIAL < 1 /hpf (0-5); URINE BACTERIA RARE (<OCC); URINE BILIRUBIN NEGATIVE (NEGATIVE); URINE BLOOD NEGATIVE (NEGATIVE); URINE CLARITY CLEAR (Clear); URINE COLOR YELLOW (YELLOW); URINE GLUCOSE (UA) NEG (NEGATIVE); URINE LEUKOCYTE ESTERASE NEG Leu/uL (Negative); URINE PROTEIN 100 mg/dL (NEGATIVE); URINE UROBILINOGEN 0.2-1.0 mg/dL (0.2-1.0)
[2018-06-11 13:32] LABS: ALB/GLOB RATIO 1.4 (1.0-2.1); ALBUMIN 4.3 g/dL (3.5-5.0); CALCIUM 8.7 mg/dL (8.4-10.2)
[2018-06-11] MEDS ORDERED: Magnesium Citrate Oral SOL (300 ml) ONE (13:58)
--- NOTE | 2018-06-11 17:27 | ED PDOC ---
HPI: Abdomen Time Seen by Provider: 06/11/18 12:53 Chief Complaint (Nursing): Abdominal Pain Chief Complaint (Provider): Constipation History Per: Patient, Family History/Exam Limitations: no limitations Onset/Duration Of Symptoms: Days (seven) Outside of [place] travel?: No Current Symptoms Are (Timing): Still Present (Pt presents to the ED in an afebrile state complaining of no pain, specifically no abdominal pain. Pt indicates that he has not passed stool for at least seven days; he states that he continues to eat well and remain hydrated nonetheless. Pt denies nausea, vomiting or other illnesses) Severity: Moderate Location Of Pain/Discomfort: Other (none) Past Medical History Reviewed: Historical Data, Nursing Documentation, Vital Signs Vital Signs: Last Vital Signs Temp 97.3 F L 06/11/18 12:21 Pulse 73 06/11/18 12:21 Resp 16 06/11/18 12:21 BP 127/78 06/11/18 12:21 Pulse Ox 97 06/11/18 12:21 - Medical History PMH: Anemia, Anxiety, Arthritis, Back Problems, Benign Prostatic Hyperplasia, CAD, COPD, Gastritis, HTN, Hypercholesterolemia, Hyperlipidemia, Chronic Kidney Disease - Surgical History Surgical History: Coronary Stent, Hernia Repair Denies: Pacemaker - Family History Family History: States: Unknown Family Hx - Home Medications Home Medications: Ambulatory Orders Medication Instructions Recorded ALPRAZolam [Xanax] 0.25 mg PO DAILY 12/06/17 Acetaminophen [Non-Aspirin Pain 325 mg PO Q6 PRN 12/06/17 Relief] Cetirizine HCl [All Day Allergy 10 mg PO DAILY 12/06/17 Relief] Cyanocobalamin [Vitamin B12] 500 mcg PO DAILY 12/06/17 DiphenhydrAMINE [Benadryl] 25 mg PO DAILY 12/06/17 Docusate Sodium/Sennosides A 1 tab PO TID 12/06/17 [Senokot S 50 MG-8.6 MG] Isosorbide Mononitrate [Imdur] 60 mg PO DAILY 12/06/17 Nitroglycerin [Nitrostat SL Tab] 0.3 mg SL Q5MIN PRN MDD 3 tabs 12/06/17 Aspirin 81 mg PO DAILY #30 tab.chew 12/11/17 Clopidogrel [Plavix] 75 mg PO DAILY #30 tab 12/11/17 Enalapril Maleate [Vasotec] 10 mg PO DAILY #30 tab 12/11/17 Famotidine [Pepcid] 20 mg PO BID tab 12/11/17 Fluticasone Propionate [Flonase] 1 spr SANIA BID bottle 12/11/17 Loratadine [Claritin] 10 mg PO DAILY tab 12/11/17 Metoprolol Tartrate [Lopressor] 25 mg PO Q8 #30 tab 12/11/17 - Allergies Allergies/Adverse Reactions: Allergies Allergy/AdvReac Type Severity Reaction Status Date / Time Penicillins Allergy RASH Verified 06/11/18 12:21 Review of Systems Gastrointestinal: Positive for: Constipation (see HPI, seven days) Physical Exam - Reviewed Nursing Documentation Reviewed: Yes Vital Signs Reviewed: Yes - Physical Exam Appears: Positive for: Well, Non-toxic, No Acute Distress. Negative for: Uncomfortable Head Exam: Positive for: ATRAUMATIC, NORMAL INSPECTION Skin: Positive for: Normal Color, Warm, Dry. Negative for: Diaphoresis, Pallor, Rash Eye Exam: Positive for: Normal appearance, PERRL. Negative for: Nystagmus, Periorbital swelling, Periorbital tenderness Neck: Positive for: Normal, Painless ROM, Supple. Negative for: Decreased ROM Cardiovascular/Chest: Positive for: Regular Rate, Rhythm Respiratory: Positive for: Normal Breath Sounds Pulses-Carotid (L): 2+ Pulses-Carotid (R): 2+ Pulses-Radial (L): 2+ Pulses-Radial (R): 2+ Gastrointestinal/Abdominal: Positive for: Normal Exam, Bowel Sounds (active in all four quadrants). Negative for: Tenderness, Distended, Guarding, Rebound, Asicites - Laboratory Results Result Diagrams: 06/11/18 13:13 06/11/18 13:13 Lab Results: Total Bilirubin 0.6 mg/dl (0.2-1.3) 06/11/18 13:13 AST 21 U/L (17-59) 06/11/18 13:13 ALT 24 U/L (21-72) 06/11/18 13:13 Alkaline Phosphatase 83 U/L (38-126) 06/11/18 13:13 Total Protein 7.4 G/DL (6.3-8.2) 06/11/18 13:13 Albumin 4.3 g/dL (3.5-5.0) 06/11/18 13:13 Globulin 3.0 gm/dL (2.2-3.9) 06/11/18 13:13 Albumin/Globulin Ratio 1.4 (1.0-2.1) 06/11/18 13:13 Urine Color Yellow (YELLOW) 06/11/18 13:13 Urine Clarity Clear (Clear) 06/11/18 13:13 Urine pH 6.0 (5.0-8.0) 06/11/18 13:13 Ur Specific [place] 1.006 (1.003-1.030) 06/11/18 13:13 Urine Protein 100 mg/dL (NEGATIVE) 06/11/18 13:13 Urine Glucose (UA) Neg mg/dL (NEGATIVE) 06/11/18 13:13 Urine Ketones Negative mg/dL (NEGATIVE) 06/11/18 13:13 Urine Blood Negative (NEGATIVE) 06/11/18 13:13 Urine Nitrate Negative (NEGATIVE) 06/11/18 13:13 Urine Bilirubin Negative (NEGATIVE) 06/11/18 13:13 Urine Urobilinogen 0.2-1.0 mg/dL (0.2-1.0) 06/11/18 13:13 Ur Leukocyte Esterase Neg Dimitri/uL (Negative) 06/11/18 13:13 Urine Microscopic WBC < 1 /hpf (0-5) 06/11/18 13:13 Ur Squamous Epith Cells < 1 /hpf (0-5) 06/11/18 13:13 Urine Bacteria Rare (<OCC) 06/11/18 13:13 - ECG O2 Sat by Pulse Oximetry: 97 Medical Decision Making Medical Decision Making: pt is mildly dehydrated digital exam indicates no compated feces Pt given IV fluids and 150ml of magnesium citrate Pt passing stool freely, five times in ED prior to discharge Pt is happy, relaxed and requests discharge F/U with PMD in 48 hours RTED if symptoms recurr Disposition - Clinical Impression Clinical Impression: Constipation, Dehydration - Patient ED Disposition Is Patient to be Admitted: No Doctor Will See Patient In The: Office Counseled Patient/Family Regarding: Studies Performed, Diagnosis, Need For Followup - Disposition Referrals: Isaiah Persaud MD [Family Provider] - Disposition: Routine/Home Disposition Time: 17:31 Condition: STABLE Instructions: Constipation, Adult (DC), Dehydration, Adult (DC), Constipation in Adults Forms: [employer] (Belarusian), [facility] (Australian) Print Language: [email or web address]
== END 2018-06-11 18:13 | disposition home or self-care (01) ==
LOC: H.ER 12:02
DX: K59.00 Constipation, unspecified (principal); E86.0 Dehydration
CPT/HCPCS: 80053; 81003; 85025; 99283; J7030